=== PATIENT | female | born 1985 | race Caucasian/White ===

== ENCOUNTER → 2016-08-02 | Outpatient (CLI) | payer BC ==
[2016-08-02 15:04] LABS: EKG EKG PERFORMED
[2016-08-02 15:40] LABS: Basophils # (A) 0.1 k/uL (0-0.2); Basophils % (A) 1 %; CH 29.8; CHCM 34.5; Eosinophils # (A) 0.1 k/uL (0-0.7); Eosinophils % (A) 1 %; HCT 42.5 % (34.0-46.0); HDW 2.82; Luc % (Auto) 2; Lymphocytes # (A) 2.9 k/uL (1.0-4.8); Lymphocytes % (A) 26 %; MCH 28.6 pg (25.0-35.0); MCV 86.7 fL (80.0-100.0); Monocytes # (A) 0.4 k/uL (0-1.0); Monocytes % (A) 3 %; Neutrophils # (A) 7.7 k/uL (1.3-7.7); Neutrophils % (A) 68 %; RDW 12.8 % (11.5-15.5); WBC 11.3 k/uL (3.8-10.6); WBC (Perox) 11.35
[2016-08-02 15:42] LABS: ALT 16 U/L (9-52); AST 13 U/L (14-36); Alkaline Phosphatase 76 U/L (38-126); Anion Gap 12 mmol/L; Blood Urea Nitrogen 8 mg/dL (7-17); Calcium 9.1 mg/dL (8.4-10.2); Carbon Dioxide 18 mmol/L (22-30); Chloride 112 mmol/L (98-107); Glucose 100 mg/dL (74-99); Non-African American GFR(MDRD) >60 (>60 ml/min/1.73 sqM); Potassium 3.8 mmol/L (3.5-5.1); Sodium 142 mmol/L (137-145); Total Bilirubin 0.5 mg/dL (0.2-1.3); Total Protein 7.7 g/dL (6.3-8.2)
== END | disposition home or self-care (01) ==
LOC: LABPAT 14:56
PROVIDERS: ATTEND Surgery
DX: Z01.812 Encounter for preprocedural laboratory examination (principal)
CPT/HCPCS: 80053; 85025; 93005

== ENCOUNTER → 2016-08-02 | Outpatient (CLI) | payer BC ==
[2016-08-02 14:42] VITALS: BP 138/78; PULSE 108; RESP 20; TEMP 98.3; BMI 40.1
--- NOTE | 2016-08-02 17:44 | PN ---
DATE OF SERVICE: 08/02/2016 CHIEF COMPLAINT: Morbid obesity. INTERVAL HISTORY: Patient is doing well today. She has just finished her 6 month supervised weight loss diet. She has not had her upper endoscopy done yet. She did have her psychiatric evaluation but the results of the evaluation are pending. She has no new complaints. No change in her history or physical exam. PHYSICAL EXAM: Abdomen is soft, nontender, nondistended. IMPRESSION: A 30-year-old female with morbid obesity. PLAN: Will schedule for upper endoscopy followed by sleeve gastrectomy. The patient's preoperative complication and risk consent form were reviewed in detail. The patient will take that home and sign it after she has had an opportunity to read through the entire pamphlet. All questions were answered.
== END ==
LOC: MERGE 12-08 14:16 → BARWHC3 14:07
PROVIDERS: ATTEND Surgery
DX: E66.01 Morbid (severe) obesity due to excess calories (principal)
CPT/HCPCS: 99211

== ENCOUNTER 2016-08-17 08:23 | Day surgery (SDC) | payer BC ==
[2016-08-15 11:23] VITALS: BMI 40.1
[~2016-08-17 08:23] MED LIST: LACTATED RINGERS 1,000 ML IV SCH; LIDOCAINE 1% 20 ML VIAL (10MG/ML) FOR IV START INTRADERMA PRN
[2016-08-17 09:17] VITALS: TEMP 98.8
[2016-08-17] MEDS ORDERED: PROPOFOL 10 MG/ML 20 ML VIAL IV ONE (09:19)
--- NOTE | 2016-08-17 09:23 | P.GSHP ---
History of Present Illness H&P Date: 08/17/16 Chief Complaint: GERD, obesity Patient today for upper endoscopy. She is complaining of chronic reflux. She takes an antacid daily. Tentatively scheduled for sleeve gastrectomy on 09/14. Denies dysphagia. Past Medical History Past Medical History: Asthma, GERD/Reflux Additional Past Medical History / Comment(s): Seasonal Allergies. Cerebral Pseudo-tumor. Polycystic Ovarian Syndrome. History of Any Multi-Drug Resistant Organisms: None Reported Past Surgical History: Section, Cholecystectomy Additional Past Surgical History / Comment(s): Cholecystectomy (2011), C- Section x2 (2007 and 2009). EXC WISDOM TEETH Past Anesthesia/Blood Transfusion Reactions: Previous Problems w/ Anesthesia, Motion Sickness, Postoperative Nausea & Vomiting (PONV) Additional Past Anesthesia/Blood Transfusion Reaction / Comment(s): "FACE ITCHY. " No hx of blood transfusions Past Psychological History: Anxiety, Depression Smoking Status: Never smoker Past Alcohol Use History: Occasional Additional Past Alcohol Use History / Comment(s): one-two drinks/month Past Drug Use History: None Reported - Past Family History Mother Additional Family Medical History / Comment(s): depression, at age 42, hypoglycemia, Father Family Medical History: Hypertension Medications and Allergies Home Medications Medication Instructions Recorded Confirmed Type Ethinyl Estradiol/Drospirenone 1 tab PO HS 02/09/16 08/17/16 History [Debbi 28 Tablet] Loratadine [Claritin] 10 mg PO DAILY 02/09/16 08/17/16 History Mirtazapine [Remeron] 30 mg PO HS 02/09/16 08/17/16 History Omeprazole [PriLOSEC] 20 mg PO -BRKT 02/09/16 08/17/16 History acetaZOLAMIDE [Diamox] 500 mg PO BID 02/09/16 08/17/16 History buPROPion [Wellbutrin] 100 mg PO BID 02/09/16 08/17/16 History Albuterol Inhaler [Ventolin Hfa 1 - 2 puff INHALATION Q6HR PRN 08/15/16 History Inhaler] EPINEPHrine (Auto Inject) [Epipen] 0.3 mg IM ONCE PRN 08/15/16 08/17/16 History Pediatric Multivitamin No.30 2 each PO DAILY 08/15/16 08/17/16 History [Multivitamin Children's Gummies] Allergies Allergy/AdvReac Type Severity Reaction Status Date / Time aspirin Allergy Itching Verified 08/17/16 09:02 [From Excedrin Back and Body] butalbital [From Fioricet] Allergy Rash/Hives Verified 08/17/16 09:02 caffeine [From Fioricet] Allergy Rash/Hives Verified 08/17/16 09:02 calcium carbonate Allergy Itching Verified 08/17/16 09:02 [From Excedrin Back and Body] ibuprofen Allergy Itching Verified 08/17/16 09:02 peanut Allergy BURNING Verified 08/17/16 09:02 INSIDE BODY, Itching, COUGH Surgical - Exam Vital Signs Temp Pulse Resp BP Pulse Ox 98.8 F 105 H 16 131/85 98 08/17/16 09:09 08/17/16 09:09 08/17/16 09:09 08/17/16 09:09 08/17/16 09:09 Physical exam: General: Well-developed, well-nourished HEENT: Normocephalic, sclerae nonicteric Abdomen: Nontender, nondistended Extremities: No edema Neuro: Alert and oriented Assessment and Plan (1) GERD (gastroesophageal reflux disease) Narrative/Plan: Will proceed with upper endoscopy at this time Status: Acute
--- NOTE | 2016-08-17 09:32 | P.PCN ---
Date of Procedure: 08/17/16 Preoperative Diagnosis: Postoperative Diagnosis: Procedure(s) Performed: Preoperative Dx: GERD Postoperative Dx: Gastritis, gastric polyps Procedure: EGD with Bx Anesthesia: Sedation Endoscopist: Dr. Reed Specimens: Antrum, gastric polyp Endoscopic Procedure: The patient was on the endoscopy table in the left decubitus position. The Olympus gastroscope was inserted into the oropharynx and passed under direct visualization to the region of the third portion of the duodenum. From that point the scope was slowly withdrawn inspecting all surfaces carefully. There were no neoplastic inflammatory or polypoid lesions throughout the duodenum. The pylorus was widely patent. The stomach was carefully inspected. There was gastritis present. There were also a few small gastric polyps present throughout the stomach. One of these were biopsied. A biopsy of the antrum took place to rule out H. pylori. Retroflexion revealed a normal hiatus. The esophagus was then carefully examined. There were no neoplastic inflammatory or polypoid lesions throughout the visualized esophagus. The patient was then taken to the recovery room in stable condition per anesthesia guidelines. Recommendations: Await biopsy results. Proceed with upcoming history. Implants: Indications for Procedure: Operative Findings: Description of Procedure:
[2016-08-17 09:53] VITALS: BP 130/71; PULSE 85; RESP 18
== END 2016-08-17 10:08 | disposition home or self-care (01) ==
LOC: ORWHC2ENDO 08:23
PROVIDERS: ATTEND Surgery
DX: K21.9 Gastro-esophageal reflux disease without esophagitis (principal); K31.7 Polyp of stomach and duodenum; K29.50 Unspecified chronic gastritis without bleeding; J45.909 Unspecified asthma, uncomplicated; G93.2 Benign intracranial hypertension; F41.9 Anxiety disorder, unspecified; F32.9 Major depressive disorder, single episode, unspecified; E66.9 Obesity, unspecified; Z68.41 Body mass index [BMI] 40.0-44.9, adult; Z91.010 Allergy to peanuts; Z88.6 Allergy status to analgesic agent; Z88.8 Allergy status to other drugs, medicaments and biological substances; Z79.3 Long term (current) use of hormonal contraceptives; Z79.899 Other long term (current) drug therapy; Z90.49 Acquired absence of other specified parts of digestive tract
CPT/HCPCS: 43239; 81025; 88305; 88342; J2704

== ENCOUNTER → 2016-08-22 | Outpatient (CLI) | payer BC ==
[2016-08-22 12:18] VITALS: BMI 38.5
== END | disposition home or self-care (01) ==
LOC: BARWHC3 08:44
PROVIDERS: ATTEND Surgery
DX: E66.01 Morbid (severe) obesity due to excess calories (principal); Z71.3 Dietary counseling and surveillance
CPT/HCPCS: 97804

== ENCOUNTER 2016-09-14 08:00 | Inpatient (IN) | payer BC ==
[2016-09-06 18:17] VITALS: BMI 40.1
[~2016-09-14 08:00] MED LIST changes: +DEXAMETHASONE SOD PHOSPHATE 10 MG/ML 1 ML VIAL IV ONE; +ENOXAPARIN 40 MG/0.4 ML SYRINGE SQ ONE; -LIDOCAINE 1% 20 ML VIAL (10MG/ML) FOR IV START INTRADERMA PRN; +METHYLENE BLUE 15 MG in DEXTROSE 5% IN WATER 500 ML IRRIGATION ONE; +MIDAZOLAM 2 MG/2 ML VIAL IV PRN; +ONDANSETRON 4 MG/2 ML VIAL IVP ONE; +SCOPOLAMINE 1.5MG/72HR PATCH TRANSDERM ONE; +ceFAZolin 2 GM in SODIUM CHLORIDE 0.9% 100 ML IVPB ONE
--- NOTE | 2016-09-14 08:26 | P.GSHP ---
History of Present Illness H&P Date: 09/14/16 Chief Complaint: Morbid obesity Patient is well known to our service. She is been seen in the outpatient setting for elective bariatric surgery. The patient is interested in sleeve gastrectomy. The patient suffers from pseudotumor cerebri and is interested in weight loss improving her symptoms from that. She also has complaints of acid reflux and asthma. She is not interested in lap band or bypass. Recent upper endoscopy showed small gastric polyps. No hiatal hernia was seen. Patient denies dysphagia or DVT. Past Medical History Past Medical History: Asthma, GERD/Reflux Additional Past Medical History / Comment(s): Seasonal Allergies. Cerebral Pseudo-tumor. Polycystic Ovarian Syndrome. History of Any Multi-Drug Resistant Organisms: None Reported Past Surgical History: Section, Cholecystectomy Additional Past Surgical History / Comment(s): Cholecystectomy (2011), C- Section x2 (2007 and 2009). EXC WISDOM TEETH. EGD W/ BIOPSY 08/17/16. Past Anesthesia/Blood Transfusion Reactions: Previous Problems w/ Anesthesia, Motion Sickness, Postoperative Nausea & Vomiting (PONV) Additional Past Anesthesia/Blood Transfusion Reaction / Comment(s): "FACE ITCHY. " No hx of blood transfusions Smoking Status: Never smoker - Past Family History Mother Additional Family Medical History / Comment(s): depression, at age 42, hypoglycemia, Father Family Medical History: Hypertension Medications and Allergies Home Medications Medication Instructions Recorded Confirmed Type Ethinyl Estradiol/Drospirenone 1 tab PO HS 02/09/16 09/06/16 History [Debbi 28 Tablet] Mirtazapine [Remeron] 30 mg PO HS 02/09/16 09/06/16 History Omeprazole [PriLOSEC] 20 mg PO HS 02/09/16 09/06/16 History acetaZOLAMIDE [Diamox] 500 mg PO BID 02/09/16 09/06/16 History buPROPion [Wellbutrin] 100 mg PO 0900,1600 02/09/16 09/06/16 History Albuterol Inhaler [Ventolin Hfa 1 - 2 puff INHALATION Q6HR PRN 08/15/16 History Inhaler] EPINEPHrine (Auto Inject) [Epipen] 0.3 mg IM ONCE PRN 08/15/16 09/06/16 History Pediatric Multivitamin No.30 2 each PO DAILY 08/15/16 09/06/16 History [Multivitamin Children's Gummies] Cetirizine HCl [Zyrtec] 10 mg PO DAILY 09/06/16 09/06/16 History Fluticasone Nasal Raymond [Flonase 1 spray EA NOSTRIL DAILY 09/06/16 09/06/16 History Nasal Raymond] Montelukast [Singulair] 10 mg PO HS 09/06/16 09/06/16 History Allergies Allergy/AdvReac Type Severity Reaction Status Date / Time aspirin Allergy Itching Verified 09/06/16 17:51 [From Excedrin Back and Body] banana Allergy EAR Verified 09/06/16 17:52 ITCHING, COUGH butalbital [From Fioricet] Allergy Rash/Hives Verified 09/06/16 17:51 caffeine [From Fioricet] Allergy Rash/Hives Verified 09/06/16 17:51 calcium carbonate Allergy Itching Verified 09/06/16 17:51 [From Excedrin Back and Body] ibuprofen Allergy Itching Verified 09/06/16 17:51 naproxen [From Aleve] Allergy Itching Verified 09/06/16 17:51 peanut Allergy BURNING Verified 09/06/16 17:51 INSIDE BODY, Itching, COUGH Surgical - Exam Physical exam: General: Well-developed, well-nourished HEENT: Normocephalic, sclerae nonicteric Abdomen: Nontender, nondistended Extremities: No edema Neuro: Alert and oriented Assessment and Plan (1) Morbid obesity Narrative/Plan: Will proceed with sleeve gastrectomy. Risks of bleeding, infection, stricture, leak, abscess, fistula formation, peritonitis, poor weight loss, chronic reflux and vomiting, NC, PE, DVT, and . The patient understands and wishes to proceed. Status: Acute
[2016-09-14] MEDS ORDERED: LIDOCAINE 1% 20 ML VIAL (10MG/ML) FOR IV START INTRADERMA ONE (09:08)
[2016-09-14] MEDS ORDERED: PROPOFOL 10 MG/ML 20 ML VIAL IV ONE (10:31)
[2016-09-14] MEDS ORDERED: VECURONIUM 10 MG VIAL IV ONE (10:31)
[2016-09-14] MEDS ORDERED: LIDOCAINE 1% INJ 10MG/ML (20 ML MDV) ONE (10:31)
[2016-09-14] MEDS ORDERED: BUPIVACAIN-EPI 0.25%-1:200,000 30 ML VIAL SQ ONE ×2 (10:31)
[2016-09-14] MEDS ORDERED: GLYCOPYRROLATE 0.2 MG/ML 2 ML VIAL ONE (10:31)
[2016-09-14] MEDS ORDERED: SUCCINYLCHOLINE CHLORIDE 100 MG/5 ML SYR IV ONE (10:31)
[2016-09-14] MEDS ORDERED: MIDAZOLAM 2 MG/2 ML VIAL ONE (10:31)
[2016-09-14] MEDS ORDERED: fentaNYL (PF) 50 MCG/ML 2 ML AMP ONE (10:31)
[2016-09-14] MEDS ORDERED: NEOSTIGMINE 1 MG/ML 10 ML VIAL ONE (10:31)
[2016-09-14] MEDS ORDERED: LACTATED RINGERS 1,000 ML IV ONE (12:01)
[2016-09-14] MEDS ORDERED: NALOXONE 0.4 MG/ML 1 ML VIAL IV PRN (12:04)
[2016-09-14] MEDS ORDERED: diphenhydrAMINE 50 MG/ML 1 ML VIAL IVP PRN (12:04)
--- NOTE | 2016-09-14 12:09 | P.OP ---
Date of Procedure: 09/14/16 Preoperative Diagnosis: Postoperative Diagnosis: Procedure(s) Performed: PREOPERATIVE DIAGNOSIS: Morbid obesity, asthma, GERD POSTOPERATIVE DIAGNOSIS: Same PROCEDURE: Laparoscopic sleeve gastrectomy SURGEON: Derek EBL: Minimal ANESTHESIA: General COMPLICATIONS: None OPERATIVE PROCEDURE: Patient was placed in the operating table in the supine position. She was placed under general anesthesia at that time. The abdomen was prepped and draped in sterile fashion after the patient was placed in lithotomy. A 5 mm optical trocar was used to enter the abdominal cavity in the left upper quadrant. Insufflation took place to 15 millimeters mercury. An additional right subxiphoid 5 mm trocar was then placed under direct visualization and then removed. 2 additional 5 mm trochars were placed in the right upper quadrant and left upper quadrant under direct visualization and a 15 mm trocar in the umbilical location. The liver was retracted using a medium Jean liver retractor through the right subxiphoid trocar site. The hiatus was inspected. The patient had no visible hiatal hernia At that point I moved to the mid aspect of the greater curvature the stomach. The short gastric vasculature was divided using a LigaSure device proximally. I then switched and divided the short gastrics distally to a 3-4 cm from the pylorus. The dissection took place up to the left diaphragmatic crura at that point. The posterior short gastrics were likewise divided using the LigaSure device. Once the stomach was fully mobilized the blunt tipped 40-Faroese bougie dilator was advanced into the stomach and advanced all the way to the prepyloric location. A black echelon 60 stapler was utilized and fired tangentially across the antrum taking care to avoid narrowing at the incisura angularis. Subsequent firings of the stapler took place. A total of 3 green echelon 60 staplers with seam guard took place proximally staying on the outer edge of our dilator. Once we reached the most proximal portion of the stomach a single firing of the gold echelon 60 stapler without seen guard took place. The oral gastric tube was reinserted. The stomach was insufflated with approximately 100 mL of methylene blue. No evidence of leak or obstruction was seen. The distal aspect of the sleeve was then reapproximated to the gastrosplenic and gastrocolic ligament using a short running 2-0 strata fix suture. This was done to prevent kinking or twisting of the sleeve. The stomach remnant was removed from the 15 mm trocar site without difficulty. The fascia at the 15 mm site was closed using interrupted 0 Vicryl sutures. The insufflation was evacuated. The skin at all 5 incisions were closed using 4-0 Monocryl sutures. Steri-Strips and sterile dressings were then applied. DISPOSITION: Stable to recovery room Implants: Indications for Procedure: Operative Findings: Description of Procedure:
[2016-09-14] MEDS ORDERED: diphenhydrAMINE 50 MG/ML 1 ML VIAL IVP ONE (12:22)
[2016-09-14] MEDS: HYDROmorphone 1 MG/ML 1 ML SYRINGE IVP PRN ×7 (12:25→23:49)
[2016-09-14] MEDS: 0.9% NACL WITH KCL 20 MEQ/L 1,000 ML IV SCH ×2 (13:46→20:19)
[2016-09-14] MEDS: ONDANSETRON 4 MG/2 ML VIAL IVP PRN ×2 (15:00→23:45)
[2016-09-14] MEDS: HYOSCYAMINE ORAL DROPS 1.875 MG/15 ML BOTTLE PO PRN (15:01)
[2016-09-14] MEDS: ALBUTEROL NEBULIZED 2.5 MG/3 ML INHALATION SCH ×2 (15:25→19:29)
--- NOTE | 2016-09-14 16:34 | CONS ---
REASON FOR CONSULTATION: Advice regarding asthma and other multiple medical issues, requested by Dr. Reed. HISTORY OF PRESENT ILLNESS: This 31-year-old woman with a past medical history of asthma, GERD, history of section, history of anxiety, depression, being followed by Dr. Grimm in the outpatient setting, underwent laparoscopic sleeve gastrectomy by Dr. Reed. The patient tolerated the procedure well. The patient is being closely monitored. There is no history of any fever, rigor or chills. No history of headache, loss of consciousness, seizures, chest pain or palpitations at this time. PAST MEDICAL HISTORY: 1. History of asthma. 2. GERD. 3. History of cholecystectomy. 4. History of anxiety, depression. HOME MEDICATIONS: 1. Wellbutrin 100 mg p.o. daily. 2. Multivitamins 1 p.o. daily. 3. Prilosec 20 mg at bedtime. 4. Singulair 10 mg at bedtime. 5. Remeron 30 mg at bedtime. 6. Flonase 1 spray daily. 7. Debbi 1 p.o. at bedtime. 8. Epipen 0.3 IM p.r.n. 9. Zyrtec 10 mg daily p.r.n. 10. Ventolin HFA 1 to 2 puffs q.6 p.r.n. ALLERGIES: 1. PEANUTS. 2. ASPIRIN. 3. BANANA. 4. BUTALBITAL. 5. CAFFEINE. 6. CALCIUM CARBONATE. 7. IBUPROFEN. 8. NAPROSYN. FAMILY HISTORY: History of hypertension. History of depression. History of hypoglycemia. SOCIAL HISTORY: No history of smoking. No history of alcohol intake. REVIEW OF SYSTEMS: ENT: No diminished hearing. No diminished vision. CARDIOVASCULAR SYSTEM: No angina, palpitations. RESPIRATORY SYSTEM: No cough, hemoptysis. GI: As mentioned earlier. : No dysuria, retention. NERVOUS SYSTEM: No numbness, weakness. ALLERGY/IMMUNOLOGY: No asthma, fever. MUSCULOSKELETAL: As mentioned earlier. HEMATOLOGY/ONCOLOGY: No history of anemia. ENDOCRINE: No history of diabetes or hypothyroidism. CONSTITUTIONAL: As mentioned earlier. DERMATOLOGIC: Negative. RHEUMATOLOGIC: Negative. PSYCHIATRY: As mentioned earlier. PHYSICAL EXAMINATION: Patient is alert and oriented x3. Pulse is 99, blood pressure 136/81, respirations 18, temperature normal, pulse ox 98% on 3 L. HEENT: Conjunctivae normal. Oral mucosa moist. NECK: No jugular venous congestion. No carotid bruit. No lymph node enlargement. CARDIAC: S1, S2 muffled. No S3. No S4. RESPIRATORY: Breath sounds diminished at the bases. No rhonchi. No crackles. ABDOMEN: Soft. Obese. Status post surgery. No mass palpable. LEGS: No edema. No swelling. NERVOUS SYSTEM: Higher functions as mentioned earlier. Moves all 4 limbs. No focal motor or sensory deficit. LYMPHATICS: No lymph node palpable in neck, axillae or groin. SKIN: No ulcer, rash or bleeding. LABS: Potassium 4. The previous labs are CBC, WBC 11.3. The chemistry shows CO2 is 18. LDL is 102. ASSESSMENT: 1. Status post laparoscopic sleeve gastrectomy for obesity. 2. History of gastroesophageal reflux disease. 3. History of asthma. 4. Seasonal allergies. 5. History of cerebral pseudotumor. 6. History of polycystic ovary syndrome. 7. History of cholecystectomy. 8. History of anxiety, depression not otherwise specified. 9. Obesity with a body mass index of 40.2. 10. FULL CODE. RECOMMENDATIONS AND DISCUSSION: In this 31-year-old woman who presented after surgery, at this time I recommend to continue current medications, continue with symptomatic treatment. Otherwise, initiate the p.o. medications when the patient is p.o. Other than that, DVT prophylaxis. Incentive spirometry. We will follow with you closely. The patient may be asked to follow with Dr. Grimm closely after discharge. Thank you, Dr. Reed, for letting us participate in the care of this patient. SHAN
[2016-09-14] MEDS ORDERED: ALBUTEROL INHALER 60 PUFF/8 GM INHALER INHALATION SCH (20:00)
[2016-09-14] MEDS ORDERED: MIRTAZAPINE 30 MG PO SCH (21:00)
[2016-09-15] MEDS: HYOSCYAMINE ORAL DROPS 1.875 MG/15 ML BOTTLE PO PRN ×2 (02:34→09:44)
[2016-09-15] MEDS: 0.9% NACL WITH KCL 20 MEQ/L 1,000 ML IV SCH ×3 (02:57→17:39)
[2016-09-15] MEDS: HYDROmorphone 1 MG/ML 1 ML SYRINGE IVP PRN ×5 (02:59→21:06)
[2016-09-15] MEDS ORDERED: ONDANSETRON 4 MG/2 ML VIAL IVP STA (03:12)
[2016-09-15] MEDS: ONDANSETRON 4 MG/2 ML VIAL IVP PRN ×3 (06:09→21:03)
[2016-09-15 07:03] LABS: Basophils % (A) 0 %; CHCM 35.3; Eosinophils # (A) 0.1 k/uL (0-0.7); Eosinophils % (A) 1 %; HCT 34.2 % (34.0-46.0); HDW 2.98; HGB 12.3 gm/dL (11.4-16.0); Luc # (Auto) 0.12; Luc % (Auto) 1; Lymphocytes # (A) 2.3 k/uL (1.0-4.8); Lymphocytes % (A) 19 %; MCH 30.5 pg (25.0-35.0); MCHC 35.8 g/dL (31.0-37.0); MCV 85.2 fL (80.0-100.0); Mean Platelet Volume 6.2; Monocytes # (A) 0.4 k/uL (0-1.0); Monocytes % (A) 4 %; Neutrophils # (A) 9.1 k/uL (1.3-7.7); Neutrophils % (A) 75 %; RBC 4.02 m/uL (3.80-5.40); RDW 13.3 % (11.5-15.5); WBC 12.1 k/uL (3.8-10.6); WBC (Perox) 11.82
[2016-09-15 07:23] LABS: Anion Gap 9 mmol/L; Blood Urea Nitrogen 6 mg/dL (7-17); Calcium 8.4 mg/dL (8.4-10.2); Carbon Dioxide 20 mmol/L (22-30); Chloride 110 mmol/L (98-107); Non-African American GFR(MDRD) >60 (>60 ml/min/1.73 sqM); Phosphorous 2.7 mg/dL (2.5-4.5); Potassium 4.2 mmol/L (3.5-5.1); Sodium 139 mmol/L (137-145)
[2016-09-15] MEDS: ALBUTEROL NEBULIZED 2.5 MG/3 ML INHALATION SCH ×4 (07:44→19:51)
[2016-09-15] MEDS: PANTOPRAZOLE 40 MG/10 ML VIAL IV SCH (10:20)
[2016-09-15] MEDS: FLUTICASONE 50MCG/SPRAY NASAL 16GM EA NOSTRIL SCH (10:29)
[2016-09-15] MEDS: ENOXAPARIN 40 MG/0.4 ML SYRINGE SQ SCH ×2 (10:31→21:17)
[2016-09-15 14:00] LABS: Appearance,Urine Cloudy (Clear); Bacteria,Urine Rare /hpf; Bilirubin,Urine Negative (Negative); Glucose,Urine (UA) Negative (Negative); Ketones,Urine 3+ (Negative); Leukocyte Esterase,Urine Negative (Negative); Mucus,Urine Rare /hpf; Nitrite,Urine Negative (Negative); PH, Urine 5.5 (5.0-8.0); Particle Count 2774; Protein,Urine Negative (Negative); RBC,Urine 1 /hpf (0-5); Specific Gravity,Urine 1.017 (1.001-1.035); Squamous Epithelial Cell,Urine 5 /hpf (0-4); UA Billing (MACRO vs. MICRO) MICRO; Urobilinogen,Urine <2.0 mg/dL (<2.0); WBC,Urine 2 /hpf (0-5)
--- NOTE | 2016-09-15 16:19 | P.PN ---
Subjective Principal diagnosis: Morbid obesity Patient complaining of some nausea today. She is also having some pressure related pain in the neck and back. The patient is unable to take Toradol because of her aspirin ALLERGY and is relying on Dilaudid. Her pain is improving although slowly. Her upper GI showed no evidence of leak or obstruction. Her vital signs have been stable. Her white blood cell count is minimally elevated. Objective - Vital Signs Vital signs: Vital Signs Temp 98.2 F 09/15/16 14:30 Pulse 62 09/15/16 15:33 Resp 16 09/15/16 14:30 BP 125/74 09/15/16 14:30 Pulse Ox 96 09/15/16 14:30 Intake & Output 09/14/16 09/15/16 09/15/16 18:59 06:59 18:59 Intake Total 2103 1800 Output Total 360 400 Balance 1743 1800 -400 Weight 90.265 kg 90.265 kg Intake: IV 2103 1800 0.9% NaCl with KCl 20 Meq 1800 /l 1,000 ml @ 150 mls/hr IV .Q6H40M [facility] Rx#: [id number] Output: Urine 350 400 Estimated Blood Loss 10 Other: Voiding Method Toilet Toilet # Voids 1 1 - Exam Abdomen: Soft, nondistended, minimal incisional tenderness - Labs CBC & Chem 7: 09/15/16 06:49 09/15/16 06:49 Labs: Abnormal Lab Results - Last 24 Hours (Table) 09/15/16 09/15/16 09/15/16 Range/Units 06:49 06:49 13:20 WBC 12.1 H (3.8-10.6) k/uL Neutrophils # 9.1 H (1.3-7.7) k/uL Chloride 110 H (98-107) mmol/L Carbon Dioxide 20 L (22-30) mmol/L BUN 6 L (7-17) mg/dL Creatinine 0.50 L (0.52-1.04) mg/dL Urine Appearance Cloudy H (Clear) Urine Ketones 3+ H (Negative) Urine Blood Moderate H (Negative) Ur Squamous Epith Cells 5 H (0-4) /hpf Urine Bacteria Rare H (None) /hpf Urine Mucus Rare H (None) /hpf Assessment and Plan (1) Morbid obesity Narrative/Plan: Continue bariatric clear liquids. We'll add Farzaneh for pain. Increase activity levels. Reevaluate tomorrow. Status: Acute
[2016-09-15] MEDS: ACETAMINOPHEN IV (For NPO) 1,000 MG in EMPTY BAG 1 BAG IVPB SCH (16:46)
[2016-09-15] MEDS: SIMETHICONE 40 MG/0.6 ML DROPS 2,000 MG/30 ML BOTTLE PO PRN (19:41)
[2016-09-15] MEDS: MIRTAZAPINE 15 MG TAB PO SCH (21:05)
[2016-09-16] MEDS: ACETAMINOPHEN IV (For NPO) 1,000 MG in EMPTY BAG 1 BAG IVPB SCH ×3 (00:38→12:10)
[2016-09-16] MEDS: 0.9% NACL WITH KCL 20 MEQ/L 1,000 ML IV SCH ×2 (02:56→12:10)
[2016-09-16] MEDS: ONDANSETRON 4 MG/2 ML VIAL IVP PRN ×3 (04:23→15:45)
[2016-09-16] MEDS: HYDROmorphone 1 MG/ML 1 ML SYRINGE IVP PRN ×3 (04:25→15:46)
[2016-09-16] MEDS: ALBUTEROL NEBULIZED 2.5 MG/3 ML INHALATION SCH ×4 (07:11→20:44)
[2016-09-16 07:47] LABS: Basophils % (A) 0 %; CH 29.6; CHCM 34.5; Eosinophils % (A) 0 %; Luc # (Auto) 0.09; Luc % (Auto) 1; Lymphocytes # (A) 2.4 k/uL (1.0-4.8); Lymphocytes % (A) 28 %; MCH 29.5 pg (25.0-35.0); MCHC 34.2 g/dL (31.0-37.0); MCV 86.1 fL (80.0-100.0); Monocytes # (A) 0.4 k/uL (0-1.0); Monocytes % (A) 4 %; Neutrophils # (A) 5.8 k/uL (1.3-7.7); Neutrophils % (A) 67 %; RBC 4.06 m/uL (3.80-5.40); WBC 8.7 k/uL (3.8-10.6); WBC (Perox) 9.24
[2016-09-16 07:59] LABS: Anion Gap 9 mmol/L; Blood Urea Nitrogen 5 mg/dL (7-17); Calcium 8.6 mg/dL (8.4-10.2); Carbon Dioxide 25 mmol/L (22-30); Chloride 104 mmol/L (98-107); Glucose 83 mg/dL (74-99); Non-African American GFR(MDRD) >60 (>60 ml/min/1.73 sqM); Potassium 4.2 mmol/L (3.5-5.1); Sodium 138 mmol/L (137-145)
[2016-09-16] MEDS: FLUTICASONE 50MCG/SPRAY NASAL 16GM EA NOSTRIL SCH (09:28)
[2016-09-16] MEDS: ENOXAPARIN 40 MG/0.4 ML SYRINGE SQ SCH ×2 (09:28→20:53)
[2016-09-16] MEDS: PANTOPRAZOLE 40 MG/10 ML VIAL IV SCH (09:28)
[2016-09-16] MEDS: SIMETHICONE 40 MG/0.6 ML DROPS 2,000 MG/30 ML BOTTLE PO PRN ×2 (09:29→15:59)
--- NOTE | 2016-09-16 10:46 | FL ---
EXAMINATION TYPE: FL UGI DATE OF EXAM ORDERED: 09/16/2016 10:39 AM HISTORY: Post op bariatric surgery. COMPARISON: None. FINDINGS: There is prompt egress of contrast from the esophagus into the stomach remnant. There is n o evidence of extravasation or free air. The ligament of Treitz is in the normal location. IMPRESSION: STATUS POST GASTRIC SLEEVE PROCEDURE.
[2016-09-16] MEDS: HYOSCYAMINE ORAL DROPS 1.875 MG/15 ML BOTTLE PO PRN (12:11)
--- NOTE | 2016-09-16 13:40 | PN ---
DATE OF SERVICE: 09/15/2016 This 31-year-old woman who was admitted with gastric sleeve surgery is improving significantly. No chest pain or palpitation. No fever. On exam, alert and oriented x3. Pulse 56, blood pressure 125/74, respirations 16 , temperature 98.2, pulse ox 96% on room air. HEENT: Conjunctivae normal. NECK: No jugular venous distention. CARDIOVASCULAR: S1 and S2 muffled. RESPIRATORY: Breath sounds diminished at the bases. No rhonchi. No crackles. ABDOMEN: Soft, status post surgery. NERVOUS SYSTEM: No focal deficits. LABS: WBC 12.1. ASSESSMENT: 1. Status post laparoscopic sleeve gastrectomy. 2. Obesity. 3. History of gastroesophageal reflux disease. 4. History of asthma. 5. History of seasonal allergies. 6. History of cerebral pseudotumor. 7. Multiple medical issues. RECOMMENDATIONS AND DISCUSSION: Recommend to continue current medications. Continue incentive spirometry. Closely monitor. Further recommendations to follow. DVT prophylaxis. MTDD
[2016-09-16 14:31] VITALS: RESP 16
--- NOTE | 2016-09-16 16:23 | P.PN ---
Subjective Principal diagnosis: Morbid obesity Patient feels better today. Her nausea and pain are both improved. Her white blood cell count was normal. She is afebrile. She is tolerating approximately 10-15 ounces of liquids thus far today. She is ambulating hallways without difficulties. She is voiding better at this time. She had a bowel movement as well. Objective - Vital Signs Vital signs: Vital Signs Temp 98.0 F 09/16/16 14:30 Pulse 72 09/16/16 14:30 Resp 16 09/16/16 14:30 BP 109/64 09/16/16 14:30 Pulse Ox 98 09/16/16 14:30 Intake & Output 09/15/16 09/16/16 09/16/16 18:59 06:59 18:59 Intake Total 800 Output Total 625 300 Balance -625 500 Weight 90.265 kg Intake: IV 800 0.9% NaCl with KCl 20 Meq 800 /l 1,000 ml @ 100 mls/hr IV .Q10H [facility] Rx#: [id number] Output: Urine 625 300 Other: Voiding Method Toilet Toilet Toilet # Voids 1 2 3 - Exam Abdomen: Soft, nondistended, mild tenderness, incisions clean and dry and - Labs CBC & Chem 7: 09/16/16 07:10 09/16/16 07:10 Labs: Abnormal Lab Results - Last 24 Hours (Table) 09/16/16 Range/Units 07:10 BUN 5 L (7-17) mg/dL Assessment and Plan (1) Morbid obesity Narrative/Plan: Continue encouraging oral intake. Continue ambulation. Possible discharge tomorrow. Will switch to oral pain meds at this point. Status: Acute
[2016-09-16] MEDS ORDERED: ACETAMINOPHEN TAB 500 MG TAB PO PRN (16:24)
[2016-09-16] MEDS: HYDROcodone/APAP 5-325MG 1 EACH TAB PO PRN (19:52)
[2016-09-16] MEDS: MIRTAZAPINE 15 MG TAB PO SCH (20:53)
[2016-09-17] MEDS: HYDROcodone/APAP 5-325MG 1 EACH TAB PO PRN ×5 (03:18→20:30)
[2016-09-17] MEDS: ALBUTEROL NEBULIZED 2.5 MG/3 ML INHALATION SCH ×4 (06:55→19:05)
[2016-09-17] MEDS: ENOXAPARIN 40 MG/0.4 ML SYRINGE SQ SCH ×2 (07:25→20:30)
[2016-09-17] MEDS: FLUTICASONE 50MCG/SPRAY NASAL 16GM EA NOSTRIL SCH (07:26)
[2016-09-17] MEDS: PANTOPRAZOLE 40 MG/10 ML VIAL IV SCH (07:26)
[2016-09-17] MEDS: 0.9% NACL WITH KCL 20 MEQ/L 1,000 ML IV SCH ×2 (07:45→18:54)
--- NOTE | 2016-09-17 11:43 | P.PN ---
Subjective Principal diagnosis: Morbid obesity Patient still struggling a little bit with her oral intake. She's had about 9 ounces of liquids thus far today. Her pain and nausea or for the most part resolved. She still having some dysphagia and spasms with ingestion. Objective - Vital Signs Vital signs: Vital Signs Temp 97.7 F 09/17/16 08:10 Pulse 63 09/17/16 11:00 Resp 16 09/17/16 08:10 BP 133/69 09/17/16 08:10 Pulse Ox 99 09/17/16 08:10 Intake & Output 09/16/16 09/17/16 09/17/16 18:59 06:59 18:59 Intake Total 1100 300 Balance 1100 300 Intake: Intake, IV Titration 1100 Amount 0.9% NaCl with KCl 20 Meq 1100 /l 1,000 ml @ 100 mls/hr IV .Q10H [facility] Rx#: [id number] Oral 300 Other: Voiding Method Toilet Toilet Toilet # Voids 3 - Exam Abdomen: Soft, nondistended, incisions clean and dry, minimal tenderness - Labs CBC & Chem 7: 09/16/16 07:10 09/16/16 07:10 Assessment and Plan (1) Morbid obesity Narrative/Plan: Continue liquid diet. Possible discharge later today or tomorrow if oral intake improves. Status: Acute
[2016-09-17] MEDS: MIRTAZAPINE 15 MG TAB PO SCH (20:30)
[2016-09-18] MEDS: HYDROcodone/APAP 5-325MG 1 EACH TAB PO PRN ×3 (02:50→12:03)
[2016-09-18] MEDS: 0.9% NACL WITH KCL 20 MEQ/L 1,000 ML IV SCH (04:28)
[2016-09-18] MEDS: PANTOPRAZOLE 40 MG/10 ML VIAL IV SCH (07:05)
[2016-09-18] MEDS: ENOXAPARIN 40 MG/0.4 ML SYRINGE SQ SCH (07:05)
[2016-09-18] MEDS: FLUTICASONE 50MCG/SPRAY NASAL 16GM EA NOSTRIL SCH (07:05)
[2016-09-18] MEDS: ALBUTEROL NEBULIZED 2.5 MG/3 ML INHALATION SCH ×2 (07:30→11:48)
--- NOTE | 2016-09-18 07:40 | PN ---
DATE OF SERVICE: 09/16/2016 This 31-year-old woman was admitted after laparoscopic sleeve gastrectomy. She is being closely monitored. No chest pain. No palpitation. No fever. On exam, alert and oriented x3. Pulse 95, blood pressure 121/74, respiration 16 , temperature 98 degrees, pulse ox 100% on room air. HEENT: Conjunctivae normal. NECK: No jugular venous distention. CARDIOVASCULAR: S1, S2 muffled. No S3. No S4. RESPIRATORY: Breath sounds diminished at the bases. No rhonchi. No crackles. ABDOMEN: Soft. Non-tender. LEGS: No edema. No swelling. NERVOUS SYSTEM: No focal deficit. LABS: WBC 8.6, hemoglobin 12. Sodium 138. ASSESSMENT: 1. Status post laparoscopic sleeve gastrectomy. 2. Obesity. 3. History of gastroesophageal reflux disease. 4. History of asthma. 5. Seasonal allergies. 6. History of cerebral pseudotumor. 7. Multiple medical issues. RECOMMENDATIONS AND DISCUSSION: I recommend to continue current medications, continue symptomatic treatment. Otherwise at this time I would recommend incentive spirometry, DVT prophylaxis. Guarded prognosis. Further recommendations to follow. MTDD
[2016-09-18 07:43] VITALS: BP 131/90; TEMP 97.9
--- NOTE | 2016-09-18 11:24 | P.DS ---
Providers Date of admission: 09/14/16 08:17 Expected date of discharge: 09/18/16 Attending physician: Torres Reed Consults: 09/14/16 12:04 Consult Physician Routine Consulting Provider: Marquita Walls Consult Reason/Comments: Medical management Do you want consulting provider notified?: Yes Primary care physician: Henry Grimm - Discharge Diagnosis(es) (1) Morbid obesity Patient hospitalized for elective sleeve gastrectomy. Postoperatively the patient had slightly more than expected nausea and dysphagia with some abdominal cramps. Those symptoms have gradually improved and she is now tolerating approximately 40 ounces of liquids per day. Her pain is well- controlled. Her incisions are healing up properly. Her vital signs are stable and her white blood cell count is normal. She'll be discharged home with plans for outpatient follow-up in 1 week. Current Visit: Yes Status: Acute Plan - Discharge Summary New Discharge Prescriptions: New Hydrocodone/Acetaminophen [[place] 5-325] 1 - 2 each PO Q4HR PRN #30 tab PRN Reason: pain No Action Omeprazole [PriLOSEC] 20 mg PO HS Mirtazapine [Remeron] 30 mg PO HS Ethinyl Estradiol/Drospirenone [Debbi 28 Tablet] 1 tab PO HS buPROPion [Wellbutrin] 100 mg PO DAILY@0900,1600 Pediatric Multivitamin No.30 [Multivitamin Children's Gummies] 2 tab PO DAILY EPINEPHrine (Auto Inject) [Epipen] 0.3 mg IM ONCE PRN PRN Reason: Anaphylaxis Albuterol Inhaler [Ventolin Hfa Inhaler] 1 - 2 puff INHALATION RT-Q6H PRN PRN Reason: ASTHMA SX Cetirizine HCl [Zyrtec] 10 mg PO DAILY Fluticasone Nasal [place] [Flonase Nasal [place]] 1 spray EA NOSTRIL DAILY Montelukast [Singulair] 10 mg PO HS Discharge Medication List Ethinyl Estradiol/Drospirenone [Debbi 28 Tablet] 1 tab PO HS 02/09/16 [History] Mirtazapine [Remeron] 30 mg PO HS 02/09/16 [History] Omeprazole [PriLOSEC] 20 mg PO HS 02/09/16 [History] buPROPion [Wellbutrin] 100 mg PO DAILY@0900,1600 02/09/16 [History] Albuterol Inhaler [Ventolin Hfa Inhaler] 1 - 2 puff INHALATION RT-Q6H PRN [History] EPINEPHrine (Auto Inject) [Epipen] 0.3 mg IM ONCE PRN 08/15/16 [History] Pediatric Multivitamin No.30 [Multivitamin Children's Gummies] 2 tab PO DAILY [History] Cetirizine HCl [Zyrtec] 10 mg PO DAILY 09/06/16 [History] Fluticasone Nasal [place] [Flonase Nasal [place]] 1 spray EA NOSTRIL DAILY 09/06/16 [History] Montelukast [Singulair] 10 mg PO HS 09/06/16 [History] Hydrocodone/Acetaminophen [[place] 5-325] 1 - 2 each PO Q4HR PRN #30 tab 09/18/16 [Rx] Follow up Appointment(s)/Referral(s): Torres Reed MD [Medical Doctor] - 1 Week
[2016-09-18 11:51] VITALS: PULSE 68
--- NOTE | 2016-09-19 11:36 | PN ---
DATE OF SERVICE: 09/17/2016 This 31-year-old woman who was admitted after laparoscopic sleeve gastrectomy is improving significantly. No chest pain or palpitation. No fever. On exam, alert and oriented x3. Pulse 84, blood pressure 133/69, respirations 16 , temperature 97.7, pulse ox 99% on room air. HEENT: Conjunctivae normal. NECK: No jugular venous distention. CARDIOVASCULAR: S1 and S2 muffled. RESPIRATORY: Breath sounds diminished at the bases. No rhonchi. No crackles. ABDOMEN: Soft. Status post surgery. LEGS: No edema, no swelling. NERVOUS SYSTEM: No focal deficits. LABS: CBC within normal limits. ASSESSMENT: 1. Status post laparoscopic sleeve gastrectomy. 2. Obesity. 3. History of gastroesophageal reflux disease. 4. History of asthma. 5. History of seasonal allergies. 6. History of cerebral pseudotumor. 7. Multiple medical issues. RECOMMENDATIONS AND DISCUSSION: Recommend to continue current medications. Continue symptomatic treatment. Otherwise, incentive spirometry. DVT prophylaxis. Further recommendations to follow. MTDD
== END 2016-09-18 12:00 | disposition home or self-care (01) | DRG 621 ==
LOC: 2ORWHC 08:17 → 5MS5E 13:08 → 3SUR 09-18 10:03
PROVIDERS: ADMIT Surgery; ATTEND Surgery
PROC: 0DB64Z3 Excision of Stomach, Percutaneous Endoscopic Approach, Vertical (ICD-10-PCS; principal; 2016-09-14 10:30)
DX: E66.01 Morbid (severe) obesity due to excess calories (principal); R13.10 Dysphagia, unspecified; E28.2 Polycystic ovarian syndrome; G93.2 Benign intracranial hypertension; J45.909 Unspecified asthma, uncomplicated; K21.9 Gastro-esophageal reflux disease without esophagitis; Z68.41 Body mass index [BMI] 40.0-44.9, adult; Z81.8 Family history of other mental and behavioral disorders; Z82.49 Family history of ischemic heart disease and other diseases of the circulatory system; Z88.6 Allergy status to analgesic agent; Z79.899 Other long term (current) drug therapy
CPT/HCPCS: 74240; 80048; 80051; 81001; 81025; 82310; 82565; 83735; 84100; 84132; 84520; 85025; 88307; 94640; 94760; 94762

== ENCOUNTER → 2016-10-04 | Outpatient (CLI) | payer BC ==
[2016-10-04 15:02] VITALS: BP 121/78; PULSE 97; TEMP 98.4; BMI 35.5
--- NOTE | 2016-10-04 15:37 | P.BASOAP ---
Subjective Principal diagnosis: Morbid obesity patient gradually feeling better. Denies nausea or vomiting. Feels full at times. Tolerating her soft diet. Mild reflux but no heartburn. Had some dysphagia with a hard boiled egg. Her energy seems to be waxing and waning at times. Protein intake approximately 50 g per day liquid intake approximate 40- 50 ounces per day. Feels full at times. No seen for hungry issues. Decent weight loss. Objective - Vital Signs Vital signs: Vital Signs Temp 98.4 F 10/04/16 14:39 Pulse 97 10/04/16 14:39 Resp BP 121/78 10/04/16 14:39 Pulse Ox Intake & Output 10/03/16 10/04/16 10/04/16 18:59 06:59 18:59 Weight 79.832 kg - Exam Abdomen: Soft, nontender, nondistended, incisions with resolving rash Assessment/Plan (1) Morbid obesity Narrative/Plan: Continue bariatric diet and gradually advance. Follow-up 2 weeks for 1 month labs and reevaluation at that time. Gradually increase protein and liquid intake. Plan: Date: 10/04/16 Initial Weight: 86.682 kg Initial BMI: 38.5 Current Weight: 79.832 kg Current BMI: 35.5 Type of Surgery: Total Volume in Band: Previous Volume: Volume Removed: Volume Added: Band Size:
== END | disposition home or self-care (01) ==
LOC: BARWHC3 13:36
PROVIDERS: ATTEND Surgery
DX: E66.01 Morbid (severe) obesity due to excess calories (principal); Z68.35 Body mass index [BMI] 35.0-35.9, adult
CPT/HCPCS: 97803; 99211

== ENCOUNTER → 2016-10-11 | Outpatient (CLI) | payer BC ==
[2016-10-11 12:12] LABS: Basophils % (A) 1 %; CH 30.5; CHCM 35.6; Eosinophils # (A) 0.1 k/uL (0-0.7); Eosinophils % (A) 2 %; HCT 40.6 % (34.0-46.0); HDW 2.91; HGB 13.8 gm/dL (11.4-16.0); Luc # (Auto) 0.11; Luc % (Auto) 2; Lymphocytes # (A) 2.1 k/uL (1.0-4.8); Lymphocytes % (A) 29 %; MCH 29.3 pg (25.0-35.0); MCV 86.2 fL (80.0-100.0); Mean Platelet Volume 6.8; Monocytes # (A) 0.3 k/uL (0-1.0); Monocytes % (A) 4 %; Neutrophils # (A) 4.6 k/uL (1.3-7.7); Neutrophils % (A) 64 %; RBC 4.72 m/uL (3.80-5.40); RDW 13.5 % (11.5-15.5); WBC 7.2 k/uL (3.8-10.6); WBC (Perox) 7.29
[2016-10-11 12:22] LABS: ALT 55 U/L (9-52); AST 27 U/L (14-36); Alkaline Phosphatase 86 U/L (38-126); Anion Gap 11 mmol/L; Blood Urea Nitrogen 8 mg/dL (7-17); Calcium 9.5 mg/dL (8.4-10.2); Carbon Dioxide 25 mmol/L (22-30); Chloride 107 mmol/L (98-107); Cholesterol 149 mg/dL (<200); Glucose 85 mg/dL (74-99); HDL Cholesterol 52 mg/dL (40-60); Non-African American GFR(MDRD) >60 (>60 ml/min/1.73 sqM); Potassium 4.2 mmol/L (3.5-5.1); Sodium 143 mmol/L (137-145); Total Bilirubin 0.4 mg/dL (0.2-1.3)
[2016-10-11 12:23] LABS: Triglycerides 143 mg/dL (<150)
== END | disposition home or self-care (01) ==
LOC: LABWHC1 11:38
PROVIDERS: ATTEND Surgery
DX: Z00.00 Encounter for general adult medical examination without abnormal findings (principal); K90.89 Other intestinal malabsorption; E55.9 Vitamin D deficiency, unspecified; Z13.1 Encounter for screening for diabetes mellitus; Z79.899 Other long term (current) drug therapy; Z13.220 Encounter for screening for lipoid disorders
CPT/HCPCS: 36415; 80053; 80061; 82306; 84443; 85025

== ENCOUNTER → 2016-10-18 | Outpatient (CLI) | payer BC ==
[2016-10-18 16:09] VITALS: BP 129/76; PULSE 92; TEMP 98.4
--- NOTE | 2016-10-18 16:27 | P.BASOAP ---
Subjective Principal diagnosis: Morbid obesity Patient seen 1 month post sleeve gastrectomy. She is doing well. No pain. Mild hungry at times. She had 2 episodes of vomiting with her multivitamins but none other. 4 pounds weight loss since her last visit 2 weeks ago. She still is fatigued although that seems to be improving. Adequate protein and liquid intake. Her labs were drawn last week look great. She does feel full after meals. Objective - Vital Signs Vital signs: Vital Signs Temp 98.4 F 10/18/16 16:06 Pulse 92 10/18/16 16:06 Resp BP 129/76 10/18/16 16:06 Pulse Ox - Exam Abdomen: Soft, nontender, nondistended, incision clean dry Assessment/Plan (1) Morbid obesity Narrative/Plan: Continue bariatric diet. Increase exercise level. Follow-up visit one month. Plan: Date: 10/18/16 Initial Weight: 86.682 kg Initial BMI: Current Weight: Current BMI: Type of Surgery: Total Volume in Band: Previous Volume: Volume Removed: Volume Added: Band Size:
[2016-10-18 16:35] VITALS: BMI 34.7
== END | disposition home or self-care (01) ==
LOC: BARWHC3 15:14
PROVIDERS: ATTEND Surgery
DX: E66.01 Morbid (severe) obesity due to excess calories (principal)
CPT/HCPCS: 97803; 99211

== ENCOUNTER → 2016-12-15 | Outpatient (CLI) | payer BC ==
[2016-12-15 12:25] LABS: CH 30.1; CHCM 34.4; HCT 38.8 % (34.0-46.0); HDW 2.81; HGB 13.5 gm/dL (11.4-16.0); MCH 30.6 pg (25.0-35.0); MCHC 34.7 g/dL (31.0-37.0); Mean Platelet Volume 6.3; RBC 4.41 m/uL (3.80-5.40); RDW 12.2 % (11.5-15.5); WBC 8.8 k/uL (3.8-10.6)
[2016-12-15 12:39] LABS: ALT 37 U/L (9-52); AST 16 U/L (14-36); Alkaline Phosphatase 73 U/L (38-126); Anion Gap 10 mmol/L; Blood Urea Nitrogen 7 mg/dL (7-17); Calcium 9.7 mg/dL (8.4-10.2); Carbon Dioxide 25 mmol/L (22-30); Chloride 106 mmol/L (98-107); Glucose 95 mg/dL (74-99); Iron 74 ug/dL (37-170); Non-African American GFR(MDRD) >60 (>60 ml/min/1.73 sqM); Potassium 4.1 mmol/L (3.5-5.1); Sodium 141 mmol/L (137-145); Total Bilirubin 0.4 mg/dL (0.2-1.3); Total Protein 7.2 g/dL (6.3-8.2)
[2016-12-15 13:27] LABS: Vitamin B12 691 pg/mL (239-931)
[2016-12-20 18:10] LABS: Selenium 121 mcg/L (63-160)
== END | disposition home or self-care (01) ==
LOC: LABWHC1 11:45
PROVIDERS: ATTEND Surgery
DX: E66.01 Morbid (severe) obesity due to excess calories (principal); D50.8 Other iron deficiency anemias; N19 Unspecified kidney failure; E44.0 Moderate protein-calorie malnutrition
CPT/HCPCS: 36415; 80053; 82607; 82746; 83540; 84255; 84425; 84439; 84443; 84590; 84630; 85027

== ENCOUNTER → 2017-01-24 | Outpatient (CLI) | payer BC ==
[2017-01-24 13:47] VITALS: BP 127/85; PULSE 107; RESP 20; TEMP 98.2; BMI 29.7
--- NOTE | 2017-01-24 14:09 | P.BASOAP ---
Subjective Progress Note Date: 01/24/17 Principal diagnosis: Morbid obesity Patient returns for follow-up. Last seen on 12/06. Her heartburn is improved. She says she only experiences heartburn if she is eating spicy foods or chocolate. Hair loss is less. 2 episodes of regurgitation since last visit. No abdominal pain. Recent labs from December 15 were reviewed and appear normal. She did have a recent TSH level evaluated and her value was 0.02. She has an ultrasound ordered and additional labs. She does not have an endocrinology evaluation scheduled thus far. Objective - Vital Signs Vital signs: Vital Signs Temp 98.2 F 01/24/17 13:31 Pulse 107 H 01/24/17 13:31 Resp 20 01/24/17 13:31 BP 127/85 01/24/17 13:31 Pulse Ox Intake & Output 01/23/17 01/24/17 01/24/17 18:59 06:59 18:59 Weight 66.633 kg - Exam Abdomen: Soft, nontender, nondistended Assessment/Plan (1) Morbid obesity Narrative/Plan: Patient gradually improving. Encouraged her to discuss with her primary care physician an endocrinology evaluation. Continue antiacids for now. Follow-up visit 4-6 weeks. Plan: Date: 01/24/17 Initial Weight: 86.682 kg Initial BMI: 38.5 Current Weight: 66.633 kg Current BMI: 29.7 Type of Surgery: Total Volume in Band: Previous Volume: Volume Removed: Volume Added: Band Size:
== END | disposition home or self-care (01) ==
LOC: BARWHC3 13:21
PROVIDERS: ATTEND Surgery
DX: E66.01 Morbid (severe) obesity due to excess calories (principal); Z68.29 Body mass index [BMI] 29.0-29.9, adult
CPT/HCPCS: 99211

== ENCOUNTER → 2017-01-27 | Outpatient (CLI) | payer BC ==
--- NOTE | 2017-01-28 16:03 | US ---
EXAMINATION TYPE: US thyroid st tissue head/neck DATE OF EXAM: 01/27/2017 COMPARISON: NONE CLINICAL HISTORY: L65.9 Hair Loss. GLAND SIZE: Right Lobe: 5.4 x 2.1 x 1.3 cm Overall Parenchyma: homogenous Left Lobe: 5.1 x 1.8 x 1.3 cm Overall Parenchyma: homogeneous Isthmus Thickness: 0.2 cm NODULES RIGHT: # of nodules measured on right: 1 largest of multiple small nodules 1. 0.3 x 0.3 x 0.2cm hypoechoic solid nodule at the mid lateral pole with well-defined margins. Thi s nodule is wider than tall and shows no intranodular vascularity. LEFT: # of nodules measured on left: 1 largest of multiple small nodules 1. 0.3 x 0.3 x 0.2 cm hypoechoic cystic nodule at the mid pole with well-defined margins. This nodu le is wider than tall and shows no intranodular vascularity. ISTHMUS: # of nodules measured in the isthmus: 0 Bilateral neck scanned: inferior to left thyroid is oval, hypoechoic mass = 0.6 x 0.5 x 0.5cm (possib le parathyroid nodule). IMPRESSION: 1. Bilateral subcentimeter pulmonary nodules in a mildly enlarged thyroid gland that are too small fo r percutaneous biopsy. Surveillance is recommended. 2. Inferior to the left thyroid gland there is a hypoechoic 0.6 x 0.5 x 0.5 cm lesion. This could rel ate to a nonenlarged adjacent lymph node or ectopic parathyroid adenoma. If clinical laboratory value s and clinical presentation are fitting further evaluation with nuclear medicine parathyroid scan cou ld be performed.
== END ==
LOC: RADUSWWP 16:16
PROVIDERS: ATTEND Family Medicine
DX: E04.2 Nontoxic multinodular goiter (principal); L65.9 Nonscarring hair loss, unspecified
CPT/HCPCS: 36415; 76536; 82306; 83970; 84439; 84481

== ENCOUNTER → 2017-11-07 | Outpatient (CLI) | payer BC ==
[2017-11-07 14:10] VITALS: BP 125/78; PULSE 80; TEMP 97.8
--- NOTE | 2017-11-07 23:12 | P.PN ---
Progress Note - Text Progress Note Date: 11/07/17 Patient left prior to my arrival today.
== END | disposition home or self-care (01) ==
LOC: BARWHC3 13:49
PROVIDERS: ATTEND Surgery
DX: Z71.3 Dietary counseling and surveillance (principal); Z53.8 Procedure and treatment not carried out for other reasons
CPT/HCPCS: 97803; 99211

== ENCOUNTER → 2017-11-30 | Outpatient (CLI) | payer BC ==
[2017-11-30 11:45] LABS: HCT 42.5 % (34.0-46.0); HGB 14.1 gm/dL (11.4-16.0); MCH 30.2 pg (25.0-35.0); MCHC 33.3 g/dL (31.0-37.0); MCV 90.7 fL (80.0-100.0); Mean Platelet Volume 5.9; Platelet Count 308 k/uL (150-450); RBC 4.68 m/uL (3.80-5.40); RDW 12.6 % (11.5-15.5); WBC 7.4 k/uL (3.8-10.6)
[2017-11-30 12:09] LABS: ALT 26 U/L (9-52); AST 17 U/L (14-36); Albumin 4.3 g/dL (3.5-5.0); Alkaline Phosphatase 52 U/L (38-126); Anion Gap 6 mmol/L; Blood Urea Nitrogen 16 mg/dL (7-17); Calcium 9.3 mg/dL (8.4-10.2); Carbon Dioxide 28 mmol/L (22-30); Chloride 106 mmol/L (98-107); Glucose 78 mg/dL (74-99); Sodium 140 mmol/L (137-145); Total Bilirubin 0.4 mg/dL (0.2-1.3); Total Protein 7.3 g/dL (6.3-8.2)
== END | disposition home or self-care (01) ==
LOC: LABWHC1 11:22
PROVIDERS: ATTEND Surgery
DX: D50.8 Other iron deficiency anemias (principal); E66.01 Morbid (severe) obesity due to excess calories
CPT/HCPCS: 36415; 80053; 82746; 83540; 84425; 85027

== ENCOUNTER → 2017-12-27 | Outpatient (CLI) | payer BC ==
--- NOTE | 2017-12-27 15:59 | US ---
EXAMINATION TYPE: US thyroid st tissue head/neck DATE OF EXAM: 12/27/2017 COMPARISON: Thyroid ultrasound January 27, 2017 CLINICAL HISTORY: E04.1 Thyroid nodule, parathyroid GLAND SIZE: Right Lobe: 5.2 x 2.4 x 1.8 cm Overall Parenchyma: homogenous Left Lobe: 5.1 x 1.7 x 1.3 cm Overall Parenchyma: homogeneous Isthmus Thickness: 0.3 cm NODULES RIGHT: # of nodules measured on right: 1 largest of multiple small nodules 1. 0.5 X 0.4 x 0.4 cm hypoechoic mixed nodule at the mid lateral pole with well-defined margins. T his nodule is wide as is tall and shows no intranodular vascularity. Prior size: 0.3 x 0.3 x 0.2 cm LEFT: # of nodules measured on left: 1 largest of multiple 1. 0.5 X 0.4 x 0.2 cm hypoechoic cystic nodule at the mid pole with well-defined margins. This nod ule is wider than tall and shows no intranodular vascularity. Prior size: 0.3 x 0.3 x 0.2 cm ISTHMUS: # of nodules measured in the isthmus: 0 Bilateral neck scanned: inferior to left thyroid an oval hypoechoic nodule is seen in parathyroid reg ion with size =0.7 x 0.6 x 0.4cm. Persistent homogeneous thyroid upper limits of normal in size with small nodules redemonstrated bilat erally. Redemonstration of stable 8 mm nodule near lower pole level left thyroid cannot exclude parat hyroid adenoma. No significant interval change from prior. IMPRESSION: Overall stable findings, no new suspicious greater than 1 cm nodules. Can't exclude parathyroid adeno ma. No significant interval change.
== END ==
LOC: RADUSWWP 14:43
PROVIDERS: ATTEND Family Medicine
DX: E04.1 Nontoxic single thyroid nodule (principal)
CPT/HCPCS: 76536

== ENCOUNTER → 2018-05-02 | Outpatient (CLI) | payer BC ==
--- NOTE | 2018-05-03 09:40 | NM ---
EXAMINATION TYPE: NM thyroid image w uptake DATE OF EXAM: 05/03/2018 COMPARISON: 12/27/2017 ultrasound HISTORY: Abnormal ultrasound TECHNIQUE: Thyroid iodine uptake is calculated and images performed after the oral administration of 312 uCi 1-123 Capsule. FINDINGS: There is normal distribution of activity throughout the gland. The 4 hour iodine uptake is calculated at 18.4% (normal range 8-14%). The 24-hour iodine uptake is calculated at 30.8% (normal r rip 15-35%). IMPRESSION: 1. No hot or cold defects. Small nodule seen by ultrasound may be too small to detect by nuclear medi cine exam. 2. Findings suggestive of hyperthyroidism.
== END | disposition home or self-care (01) ==
LOC: RADNMMAIN 08:31
PROVIDERS: ATTEND Family Medicine
DX: E04.1 Nontoxic single thyroid nodule (principal); R79.89 Other specified abnormal findings of blood chemistry
CPT/HCPCS: 78014; A9516

== ENCOUNTER → 2018-05-03 | Outpatient (CLI) | payer BC ==
--- NOTE | 2018-05-11 20:05 | HM ---
HOLTER MONITOR REPORT PROCEDURE PERFORMED: 24 hour Holter monitor DATE OF SERVICE: May 03, 2018. REFERRING PHYSICIAN: Dr. Grimm. INDICATIONS: Palpitations. CLINICAL INFORMATION: The patient was monitored for 72 hours. The baseline rhythm appeared to be a sinus mechanism with a minimum heart rate of 45 beats per minute. Maximum heart rate 115 beats per minute, average heart rate of 74 beats per minute. Ventricular ectopy given is not seen. Supraventricular ectopic events were presented in less than 1% of the total of this count and presented mainly as isolated PACs with couplets. No evidence of sinus pause exceeds 2.5 seconds. No evidence of any tachy or bradyarrhythmia. The patient reported no symptoms. CONCLUSION: 1. This is a 72 hour Holter monitor. 2. Sinus rhythm as a baseline mechanism. 3. No evidence of any ventricular ectopy events. 4. Rare supraventricular ectopic events. 5. No evidence of any advanced AV block. 6. No evidence of any sinus pause exceeds 2.5 seconds seen. 7. The patient reported no symptoms. MMODL / IJN: [id number] /
== END | disposition home or self-care (01) ==
LOC: RADECHMAIN 08:34
PROVIDERS: ATTEND Family Medicine
DX: R00.0 Tachycardia, unspecified (principal)
CPT/HCPCS: 93225; 93226

== ENCOUNTER → 2018-05-16 | Outpatient (CLI) | payer BC ==
[2018-05-16 17:44] LABS: T4, Free (Free Thyroxine) 1.2 ng/dL (0.80-1.80)
== END ==
LOC: LABWHC1 09:25
PROVIDERS: ATTEND Internal Medicine Endocrinology, Diabetes & Metabolism
DX: E04.2 Nontoxic multinodular goiter (principal)
CPT/HCPCS: 36415; 84439; 84443

== ENCOUNTER → 2018-07-13 | Outpatient (CLI) | payer BC | LOC: LABWHC1 08:58 | PROVIDERS: ATTEND Internal Medicine Endocrinology, Diabetes & Metabolism | DX: E04.2 Nontoxic multinodular goiter (principal) | CPT/HCPCS: 36415; 84439; 84443; 84480 ==

== ENCOUNTER → 2018-07-23 | Outpatient (CLI) | payer BC ==
[2018-07-23 10:11] LABS: Basophils % (A) 0 %; Eosinophils % (A) 1 %; HCT 40.8 % (34.0-46.0); HGB 13.1 gm/dL (11.4-16.0); Lymphocytes % (A) 30 %; MCHC 32.1 g/dL (31.0-37.0); MCV 90.2 fL (80.0-100.0); Mean Platelet Volume 5.9; Monocytes # (A) 0.3 k/uL (0-1.0); Monocytes % (A) 4 %; Neutrophils # (A) 4.3 k/uL (1.3-7.7); Neutrophils % (A) 64 %; Platelet Count 278 k/uL (150-450); RBC 4.52 m/uL (3.80-5.40); RDW 12.8 % (11.5-15.5); WBC 6.8 k/uL (3.8-10.6)
[2018-07-23 16:22] LABS: Albumin 4.1 g/dL (3.80-4.90); Albumin/Globulin Ratio 1.86 (1.60-3.17); Anion Gap 6.6 mmol/L (4.00-12.00); Calcium 8.6 mg/dL (8.7-10.3); Carbon Dioxide 26.4 mmol/L (21.6-31.8); Globulin 2.2 g/dL (1.6-3.3); LDL Cholesterol,Calculated 91.8 mg/dL (0.0-131.0); Potassium 4.1 mmol/L (3.5-5.5); Total Bilirubin 0.4 mg/dL (0.2-1.2); Total Protein 6.3 g/dL (6.2-8.2); VLDL Calculation 15.2 mg/dL (5.00-40.00)
== END ==
LOC: LABWHC1 09:14
PROVIDERS: ATTEND Nurse Practitioner
DX: Z00.00 Encounter for general adult medical examination without abnormal findings (principal); Z13.1 Encounter for screening for diabetes mellitus; Z13.0 Encounter for screening for diseases of the blood and blood-forming organs and certain disorders involving the immune mechanism; Z13.220 Encounter for screening for lipoid disorders
CPT/HCPCS: 36415; 80053; 80061; 85025

== ENCOUNTER → 2018-09-18 | Outpatient (CLI) | payer BC ==
[2018-09-18 13:44] VITALS: BP 119/76; PULSE 52; TEMP 97.2; BMI 32.1
--- NOTE | 2018-09-18 15:20 | P.BASOAP ---
Subjective Progress Note Date: 09/18/18 Principal diagnosis: Morbid obesity Patient returns today for reevaluation. Last seen January 2017. Had an appointment last year but the plan was canceled because of an emergency that I had. He has been eating slightly more often. He is hungry at night at times. No significant exercise lately. Denies vomiting. Recent CBC and CMP reviewed and appears normal. Due for bariatric labs however. Patient still taking antiacid therapy. No GERD symptoms while taking her medications. She stopped taking her bariatric multivitamin and is now taking chewable children's vitamins. Objective - Vital Signs Vital signs: Vital Signs Temp 97.2 F L 09/18/18 13:25 Pulse 52 L 09/18/18 13:25 Resp BP 119/76 09/18/18 13:25 Pulse Ox Intake & Output 09/17/18 09/18/18 09/18/18 18:59 06:59 18:59 Weight 94.347 kg - Exam Abdomen: Soft, nontender, nondistended Assessment/Plan (1) Morbid obesity Narrative/Plan: Patient overall doing fairly well. 6 pound increase since last visit. Continue daily antiacids for now. We'll check bariatric labs at this time. Further decisions regarding appropriate vitamin supplementation following that review. For now we'll plan one year follow-up. Plan: Date: 09/18/18 Initial Weight: 86.682 kg Initial BMI: 29.5 Current Weight: 94.347 kg Current BMI: 32.1 Type of Surgery: Total Volume in Band: Previous Volume: Volume Removed: Volume Added: Band Size:
== END | disposition home or self-care (01) ==
LOC: BARWHC3 12:40
PROVIDERS: ATTEND Surgery
DX: E66.01 Morbid (severe) obesity due to excess calories (principal); Z68.32 Body mass index [BMI] 32.0-32.9, adult
CPT/HCPCS: 99211

== ENCOUNTER → 2018-09-18 | Outpatient (CLI) | payer BC ==
[2018-09-18 20:12] LABS: Vitamin D 25 Hydroxy 22.7 ng/mL (30.0-100.0)
[2018-09-18 20:14] LABS: Folate, Serum 14.1 ng/mL
== END | disposition home or self-care (01) ==
LOC: LABWHC1 13:45
PROVIDERS: ATTEND Surgery
DX: E66.01 Morbid (severe) obesity due to excess calories (principal); K90.9 Intestinal malabsorption, unspecified; E55.9 Vitamin D deficiency, unspecified
CPT/HCPCS: 36415; 82306; 82607; 82746; 83540; 84425

== ENCOUNTER → 2018-12-18 | Outpatient (CLI) | payer BC ==
--- NOTE | 2018-12-18 14:14 | US ---
EXAMINATION TYPE: US thyroid st tissue head/neck DATE OF EXAM: 12/18/2018 COMPARISON: NONE CLINICAL HISTORY: E05.90 Subclinical hyperthyroidism. on meds for a few months for hyperthyroidism, f /u exam GLAND SIZE: Right Lobe: 5.4 x 1.7 x 2.3 cm Overall Parenchyma: homogenous Left Lobe: 5.2 x 1.8 x 1.8 cm Overall Parenchyma: homogeneous Isthmus Thickness: 0.6 cm NODULES RIGHT: # of nodules measured on right: 1 1. 0.3 X 0.2 x 0.2 cm cystic nodule at the mid pole with well-defined margins. This nodule is wide r than tall and shows no intranodular vascularity. Prior size: 0.5 x 0.4 x 0.4 cm LEFT: # of nodules measured on left: 1 1. 0.4 X 0.3 x 0.4 cm mixed nodule at the mid pole with well-defined margins. This nodule is wider than tall and shows no intranodular vascularity. Prior size: 0.5 x 0.4 x 0.2 cm ISTHMUS: # of nodules measured in the isthmus: 0 Bilateral neck scanned, no evidence of lymphadenopathy. *unable to recreate the previous cystic structure noted inferior to left thyroid IMPRESSION: Similar subcentimeter thyroid nodules. No interval growth nor new thyroid nodule. Mild th yromegaly.
[2018-12-18 14:18] LABS: T4, Free (Free Thyroxine) 0.93 ng/dL (0.78-2.19)
== END | disposition home or self-care (01) ==
LOC: RADUSWWP 12:44
PROVIDERS: ATTEND Internal Medicine Endocrinology, Diabetes & Metabolism
DX: E01.0 Iodine-deficiency related diffuse (endemic) goiter (principal); E05.90 Thyrotoxicosis, unspecified without thyrotoxic crisis or storm
CPT/HCPCS: 36415; 76536; 84439; 84443; 84480

== ENCOUNTER → 2019-03-21 | Outpatient (CLI) | payer BC ==
[2019-03-21 10:26] LABS: Basophils % (A) 1 %; Eosinophils # (A) 0.1 k/uL (0-0.7); Eosinophils % (A) 1 %; HGB 14.2 gm/dL (11.4-16.0); Lymphocytes # (A) 2.3 k/uL (1.0-4.8); Lymphocytes % (A) 37 %; MCH 31.2 pg (25.0-35.0); MCHC 35.4 g/dL (31.0-37.0); MCV 88.3 fL (80.0-100.0); Mean Platelet Volume 6.4; Monocytes # (A) 0.2 k/uL (0-1.0); Monocytes % (A) 4 %; Neutrophils # (A) 3.5 k/uL (1.3-7.7); Neutrophils % (A) 57 %; Platelet Count 323 k/uL (150-450); RBC 4.53 m/uL (3.80-5.40); RDW 11.6 % (11.5-15.5); WBC 6.1 k/uL (3.8-10.6)
[2019-03-21 17:02] LABS: African American GFR (CKD) 130.1 (60.0-200.0); Albumin 4.5 g/dL (3.80-4.90); Albumin/Globulin Ratio 2.14 (1.60-3.17); Anion Gap 7.6 mmol/L (4.00-12.00); BUN/Creat Ratio 15.71 Ratio (12.00-20.00); Calcium 9.3 mg/dL (8.7-10.3); Carbon Dioxide 27.4 mmol/L (21.6-31.8); Globulin 2.1 g/dL (1.6-3.3); Non-African American GFR(CKD) 112.3 (60.0-200.0); Potassium 4.3 mmol/L (3.5-5.5); Total Bilirubin 0.4 mg/dL (0.3-1.2); Total Protein 6.6 g/dL (6.2-8.2)
[2019-03-21 17:08] LABS: T4, Free (Free Thyroxine) 1.2 ng/dL (0.80-1.80)
== END | disposition home or self-care (01) ==
LOC: LABWHC1 09:07
PROVIDERS: ATTEND Internal Medicine Endocrinology, Diabetes & Metabolism
DX: E05.80 Other thyrotoxicosis without thyrotoxic crisis or storm (principal); R53.83 Other fatigue; Z71.89 Other specified counseling; Z79.899 Other long term (current) drug therapy
CPT/HCPCS: 36415; 80053; 82306; 84439; 84443; 84480; 85025

== ENCOUNTER → 2019-08-09 | Outpatient (CLI) | payer BC | END | disposition home or self-care (01) | LOC: LABWHC1 14:42 | PROVIDERS: ATTEND Internal Medicine Endocrinology, Diabetes & Metabolism | DX: E05.90 Thyrotoxicosis, unspecified without thyrotoxic crisis or storm (principal); E04.2 Nontoxic multinodular goiter | CPT/HCPCS: 36415; 84439; 84443; 84480 ==

== ENCOUNTER → 2019-11-29 | Outpatient (CLI) | payer BC ==
[2019-11-29 12:11] LABS: Basophils % (A) 1 %; Eosinophils # (A) 0.1 k/uL (0-0.7); Eosinophils % (A) 1 %; HCT 42.8 % (34.0-46.0); Lymphocytes # (A) 2.4 k/uL (1.0-4.8); Lymphocytes % (A) 37 %; MCH 28.9 pg (25.0-35.0); MCHC 32.8 g/dL (31.0-37.0); MCV 88.1 fL (80.0-100.0); Mean Platelet Volume 6.2; Monocytes # (A) 0.3 k/uL (0-1.0); Monocytes % (A) 4 %; Neutrophils # (A) 3.7 k/uL (1.3-7.7); Neutrophils % (A) 56 %; Platelet Count 298 k/uL (150-450); RBC 4.85 m/uL (3.80-5.40); RDW 11.7 % (11.5-15.5); WBC 6.5 k/uL (3.8-10.6)
[2019-11-29 18:35] LABS: African American GFR (CKD) 129.2 (60.0-200.0); Albumin 4.6 g/dL (3.80-4.90); Albumin/Globulin Ratio 1.92 (1.60-3.17); Anion Gap 9.5 mmol/L (4.00-12.00); BUN/Creat Ratio 14.29 Ratio (12.00-20.00); Calcium 9.1 mg/dL (8.7-10.3); Carbon Dioxide 26.5 mmol/L (21.6-31.8); Chol/HDL Ratio 2.78; Globulin 2.4 g/dL (1.6-3.3); Non-African American GFR(CKD) 111.5 (60.0-200.0); Total Bilirubin 0.4 mg/dL (0.3-1.2)
== END | disposition home or self-care (01) ==
LOC: LABWHC1 09:36
PROVIDERS: ATTEND Internal Medicine Endocrinology, Diabetes & Metabolism
DX: Z00.00 Encounter for general adult medical examination without abnormal findings (principal); E05.90 Thyrotoxicosis, unspecified without thyrotoxic crisis or storm; Z13.220 Encounter for screening for lipoid disorders; Z13.0 Encounter for screening for diseases of the blood and blood-forming organs and certain disorders involving the immune mechanism; Z13.1 Encounter for screening for diabetes mellitus; Z90.3 Acquired absence of stomach [part of]; E04.2 Nontoxic multinodular goiter
CPT/HCPCS: 36415; 80053; 80061; 82306; 84439; 84443; 85025

== ENCOUNTER → 2019-12-10 | Outpatient (CLI) | payer BC ==
--- NOTE | 2019-12-10 10:28 | US ---
EXAMINATION TYPE: US thyroid st tissue head/neck DATE OF EXAM: 12/10/2019 COMPARISON: US 12/18/2018 CLINICAL HISTORY: E04.2 Nontoxic multinodular goiter. Takes thyroid medication GLAND SIZE: Right Lobe: 5.3 x 2.4 x 1.7 cm Overall Parenchyma: homogenous Left Lobe: 5.3 x 2.1 x 1.5 cm Overall Parenchyma: homogeneous Isthmus Thickness: 0.4 cm NODULES RIGHT: # of nodules measured on right: largest of multiple small nodules 1. 0.4 X 0.3 x 0.2 cm hypoechoic cystic nodule at the lower pole with well-defined margins. This n odule is wider than tall and shows no intranodular vascularity. Prior mid pole simple cyst was 0.3 x 0.2 x 0.2cm. LEFT: # of nodules measured on left: 1 1. 0.5 X 0.4 x 0.3 cm hypoechoic mixed nodule at the mid pole with well-defined margins. This nodu le is wider than tall and shows no intranodular vascularity. Prior size: 0.4 x 0.4 x 0.3 cm ISTHMUS: # of nodules measured in the isthmus: 0 Bilateral neck scanned: inferior to left thyroid is hypoechoic oval nodule and may be lymph node vs. parathyroid nodule = 0.7 x 0.3 x 0.4cm. IMPRESSION: 1. Mild thyromegaly. Bilateral subcentimeter nodules the prior exam. 2. 7 x 3 mm nodule inferior left thyroid could represent a small lymph node or possibly a tiny parath yroid nodule finding is too small to characterize and can be followed on subsequent exams.
== END | disposition home or self-care (01) ==
LOC: RADUSWWP 09:35
PROVIDERS: ATTEND Internal Medicine Endocrinology, Diabetes & Metabolism
DX: E01.0 Iodine-deficiency related diffuse (endemic) goiter (principal)
CPT/HCPCS: 76536

== ENCOUNTER → 2019-12-30 | Outpatient (CLI) | payer BC ==
--- NOTE | 2019-12-30 12:14 | MM ---
Reason for exam: screening (asymptomatic). Baseline mammogram. History: Family history of breast cancer in maternal grandmother at age 72. Took hormonal contraceptives for 5 years. Physical Findings: Nurse Summary: 0.5cm nodule in the left breast at 5 o'clock (nurse natasha). MG 3D Screening Mammo W/Cad Bilateral CC and MLO view(s) were taken. The breast tissue is heterogeneously dense. This may lower the sensitivity of mammography. Palpable marker left breast 5 o'clock. 9 x 8mm circumscribed mass 6 o'clock subareolar right breast. These results were verbally communicated with the patient and result sheet given to the patient on 12/30/19. ASSESSMENT: Incomplete: need additional imaging evaluation, BI-RAD 0 RECOMMENDATION: Ultrasound of both breasts. (right periareolar, left palpable)
--- NOTE | 2019-12-30 12:16 | USB ---
Reason for exam: additional evaluation requested from abnormal screening. History: Family history of breast cancer in maternal grandmother at age 72. Took hormonal contraceptives for 5 years. Physical Findings: Breast exam preformed at baseline screening. US Breast Workup Limited DOLORES Technologist: Elena Buenrostro Right limited breast ultrasound including focal area of concern, retroareolar and axilla demonstrates a 1.0 x 0.9 x 0.5cm oval, hypoechoic lesion at the posterior nipple, circumscribed with subtle posterior through transmission fibroadenoma is suspected. 6 month follow up mammogram. Left limited breast ultrasound including focal area of concern, retroareolar and axilla demonstrates no abnormality at the nurse palpated site. Left scanned 3-6 o'clock. These results were verbally communicated with the patient and result sheet given to the patient on 12/30/19. ASSESSMENT: Probably benign, BI-RAD 3 RECOMMENDATION: Follow-up diagnostic mammogram of the right breast in 6 months.
== END | disposition home or self-care (01) ==
LOC: RADMAMWWP 10:16
PROVIDERS: ATTEND Family Medicine
DX: R92.8 Other abnormal and inconclusive findings on diagnostic imaging of breast (principal); Z12.31 Encounter for screening mammogram for malignant neoplasm of breast; N63.20 Unspecified lump in the left breast, unspecified quadrant
CPT/HCPCS: 77063; 77067

== ENCOUNTER → 2020-04-23 | Outpatient (CLI) | payer BC ==
[2020-04-23 14:49] LABS: T4, Free (Free Thyroxine) 1.1 ng/dL (0.80-1.80)
== END | disposition home or self-care (01) ==
LOC: LABWHC1 09:09
PROVIDERS: ATTEND Internal Medicine Endocrinology, Diabetes & Metabolism
DX: E04.2 Nontoxic multinodular goiter (principal)
CPT/HCPCS: 36415; 84439; 84443

== ENCOUNTER → 2020-08-07 | Outpatient (CLI) | payer BC ==
[2020-08-07 15:07] LABS: Basophils # (A) 0.05 X 10*3/uL (0.00-0.10); Basophils % (A) 0.8 %; Eosinophils # (A) 0.08 X 10*3/uL (0.04-0.35); Eosinophils % (A) 1.3 %; HCT 41.8 % (37.2-46.3); HGB 13.8 g/dL (12.0-15.0); Lymphocytes # (A) 2.28 X 10*3/uL (0.90-5.00); Lymphocytes % (A) 37.6 %; MCH 29.8 pg (27.0-32.0); MCV 90.3 fL (80.0-97.0); Mean Platelet Volume 8.9 fL (9.5-12.2); Monocytes # (A) 0.34 X 10*3/uL (0.20-1.00); Monocytes % (A) 5.6 %; Neutrophils # (A) 3.31 X 10*3/uL (1.80-7.70); Neutrophils % (A) 54.5 %; Platelet Count 340 X 10*3/uL (140-440); RBC 4.63 X 10*6/uL (4.10-5.20); WBC 6.07 X 10*3/uL (4.50-10.00)
[2020-08-07 21:17] LABS: African American GFR (CKD) 109.9 (60.0-200.0); Albumin 4.8 g/dL (3.80-4.90); Anion Gap 8.8 mmol/L (4.00-12.00); BUN/Creat Ratio 12.5 Ratio (12.00-20.00); Calcium 9.6 mg/dL (8.7-10.3); Carbon Dioxide 23.2 mmol/L (21.6-31.8); Chol/HDL Ratio 3.48; Globulin 2.4 g/dL (1.6-3.3); LDL Cholesterol,Calculated 141.8 mg/dL (0.0-131.0); Non-African American GFR(CKD) 94.8 (60.0-200.0); Potassium 4.1 mmol/L (3.5-5.5); Total Bilirubin 0.4 mg/dL (0.3-1.2); Total Protein 7.2 g/dL (6.2-8.2); VLDL Calculation 17.2 mg/dL (5.00-40.00)
== END | disposition home or self-care (01) ==
LOC: LABWHC1 09:02
PROVIDERS: ATTEND Internal Medicine Endocrinology, Diabetes & Metabolism
DX: Z13.0 Encounter for screening for diseases of the blood and blood-forming organs and certain disorders involving the immune mechanism (principal); Z13.21 Encounter for screening for nutritional disorder; Z13.220 Encounter for screening for lipoid disorders; E05.90 Thyrotoxicosis, unspecified without thyrotoxic crisis or storm; Z79.899 Other long term (current) drug therapy
CPT/HCPCS: 36415; 80053; 80061; 82306; 84439; 84443; 84480; 85025

== ENCOUNTER → 2020-11-03 | Outpatient (CLI) | payer BC ==
--- NOTE | 2020-11-04 07:26 | US ---
EXAMINATION TYPE: US thyroid st tissue head/neck DATE OF EXAM: 11/03/2020 COMPARISON: US 12/10/2019 CLINICAL HISTORY: E04.2 Nontoxic multinodular goiter. Nontoxic multinodular goiter per order. Patient takes thyroid medication. GLAND SIZE: Right Lobe: 5.1 x 2.6 x 1.9 cm Overall Parenchyma: homogenous Left Lobe: 5.6 x 2.2 x 1.8 cm Overall Parenchyma: homogeneous Isthmus Thickness: 0.29 cm NODULES RIGHT: # of nodules measured on right: 2 1. 0.4 X 0.4 x 0.2 cm, lower lateral, anechoic, nodule, which is wider than tall, with smooth boby ns, with echogenic focus laterally. Prior size: May not correlate 2. 0.5 X 0.4 x 0.3 cm, lower, hypoechoic nodule, which is wider than tall, with ill-defined margins , without echogenic foci. Prior size: May not correlate. LEFT: # of nodules measured on left: 1 1. 0.5 X 0.5 x 0.4 cm, mid, hypoechoic nodule, which is wider than tall, with smooth margins, witho ut echogenic foci. Prior size: 0.5 x 0.4 x 0.2 cm ISTHMUS: # of nodules measured in the isthmus: 0 Bilateral neck scanned, no evidence of lymphadenopathy. IMPRESSION: 1. Thyroidomegaly. 2. Nonspecific subcentimeter thyroid nodularity. 2017 ACR TI-RADS LEVEL: *Highest TI-RADS level nodule reported
== END | disposition home or self-care (01) ==
LOC: RADUSWWP 16:48
PROVIDERS: ATTEND Internal Medicine Endocrinology, Diabetes & Metabolism
DX: E04.2 Nontoxic multinodular goiter (principal)
CPT/HCPCS: 76536

== ENCOUNTER → 2020-11-11 | Outpatient (CLI) | payer BC | END | disposition home or self-care (01) | LOC: LABWHC1 10:12 | PROVIDERS: ATTEND Internal Medicine Endocrinology, Diabetes & Metabolism | DX: E05.90 Thyrotoxicosis, unspecified without thyrotoxic crisis or storm (principal) | CPT/HCPCS: 36415; 84439; 84443; 84480 ==

== ENCOUNTER → 2021-01-15 | Outpatient (CLI) | payer BC ==
--- NOTE | 2021-01-15 11:22 | MM ---
Reason for exam: follow-up at short interval from prior study. Last mammogram was performed 1 year and 1 month ago. History: Family history of breast cancer in maternal grandmother at age 72. Took hormonal contraceptives for 5 years. Physical Findings: Nurse did not find any significant physical abnormalities on exam. MG 3D Diag Mammo W/Cad DOLORES Bilateral CC and MLO view(s) were taken. Prior study comparison: December 30, 2019, bilateral MG 3d screening mammo w/cad. The breast tissue is heterogeneously dense. This may lower the sensitivity of mammography. Finding: There is a typically benign, stable 9 mm equal density (isodense), indistinct oval mass located 3 cm from the nipple in the 3 o'clock inner quadrant of the right breast. No significant changes in finding since December 30, 2019. These results were verbally communicated with the patient and result sheet given to the patient on 01/15/21. ASSESSMENT: Benign, BI-RAD 2 RECOMMENDATION: Routine screening mammogram of both breasts in 1 year.
== END | disposition home or self-care (01) ==
LOC: RADMAMWWP 09:37
PROVIDERS: ATTEND Family Medicine
DX: N63.15 Unspecified lump in the right breast, overlapping quadrants (principal); Z80.3 Family history of malignant neoplasm of breast
CPT/HCPCS: 77062; 77066

== ENCOUNTER → 2021-02-23 | Outpatient (CLI) | payer BC ==
--- NOTE | 2021-02-23 14:31 | P.BASOAP ---
Subjective Progress Note Date: 02/23/21 Principal diagnosis: Morbid obesity Patient returns today for evaluation. She was last seen September 2018. Patient has sleeve gastrectomy 2016. She had annual lab work in July. Labs were reviewed and look good. Since her last visit she has lost 12 pounds. Patient states between her last visit her weight had gone up to 170. She says she has been more focused lately. Would like to see the dietitian to discuss other options. Usually does 1 protein powder shake in the morning. GERD symptoms controlled with once daily omeprazole. Careful about eating close to bedtime. Objective - Exam Abdomen: Soft, nontender, nondistended Assessment/Plan (1) Morbid obesity Narrative/Plan: Patient doing relatively well. We'll have patient seen by dietary today. Continue dietary and exercise regimen. Follow-up 1 year. Plan: Date: Initial Weight: 86.682 kg Initial BMI: Current Weight: Current BMI: Type of Surgery: Total Volume in Band: Previous Volume: Volume Removed: Volume Added: Band Size:
[2021-02-23 14:40] VITALS: BP 127/78; PULSE 112; TEMP 98.4; BMI 28.8
== END ==
LOC: BARWHC3 13:56
PROVIDERS: ATTEND Surgery
DX: E66.01 Morbid (severe) obesity due to excess calories (principal); Z98.84 Bariatric surgery status; Z68.28 Body mass index [BMI] 28.0-28.9, adult; Z71.3 Dietary counseling and surveillance; Z88.6 Allergy status to analgesic agent; Z91.010 Allergy to peanuts; Z91.018 Allergy to other foods; Z88.8 Allergy status to other drugs, medicaments and biological substances
CPT/HCPCS: 97803; 99211

== ENCOUNTER → 2021-02-23 | Outpatient (CLI) | payer BC ==
[2021-02-24 07:55] LABS: T4, Free (Free Thyroxine) 1.04 ng/dL (0.800-1.800)
== END | disposition home or self-care (01) ==
LOC: LABWHC1 15:09
PROVIDERS: ATTEND Internal Medicine Endocrinology, Diabetes & Metabolism
DX: E05.90 Thyrotoxicosis, unspecified without thyrotoxic crisis or storm (principal)
CPT/HCPCS: 36415; 84439; 84443; 84480

== ENCOUNTER → 2021-06-28 | Outpatient (CLI) | payer BC ==
--- NOTE | 2021-06-28 16:36 | XR ---
EXAMINATION TYPE: XR chest 2V DATE OF EXAM: 06/28/2021 COMPARISON: NONE HISTORY: R0602,[id number],R05 SOB,ASTHMA,COUGH TECHNIQUE: Frontal and lateral views of the chest are obtained. FINDINGS: There is no focal air space opacity, pleural effusion, or pneumothorax seen. The cardiac silhouette size is within normal limits. There is bronchial wall thickening present. The osseous str uctures are intact. IMPRESSION: Correlate for bronchitis, reactive airways disease, follow-up as indicated
== END | disposition home or self-care (01) ==
LOC: RADXRYALE 15:50
PROVIDERS: ATTEND Physician Assistant
DX: J45.20 Mild intermittent asthma, uncomplicated (principal)
CPT/HCPCS: 71046

== ENCOUNTER → 2021-07-14 | Outpatient (CLI) | payer BC | END | disposition home or self-care (01) | LOC: LABWHC1 14:48 | PROVIDERS: ATTEND Internal Medicine Critical Care Medicine | DX: J45.909 Unspecified asthma, uncomplicated (principal); R05.9 Cough, unspecified | CPT/HCPCS: 36415; 86001; 86606; 86609 ==

== ENCOUNTER → 2021-10-07 | Outpatient (CLI) | payer BC ==
[2021-10-08 00:33] LABS: T4, Free (Free Thyroxine) 1.01 ng/dL (0.800-1.800)
== END | disposition home or self-care (01) ==
LOC: LABWHC1 14:23
PROVIDERS: ATTEND Internal Medicine Endocrinology, Diabetes & Metabolism
DX: E05.90 Thyrotoxicosis, unspecified without thyrotoxic crisis or storm (principal)
CPT/HCPCS: 36415; 84439; 84443; 84480

== ENCOUNTER → 2022-01-25 | Outpatient (CLI) | payer BC ==
--- NOTE | 2022-01-26 08:04 | MM ---
Reason for Exam: Screening (asymptomatic). Last screening mammogram was performed 12 month(s) ago. Patient History: Menarche at age 10. First Full-Term at age 21. Patient used Hormonal Contraceptives for 5 years. Maternal grandmother had breast cancer, age 72. Last menstrual period: 01/20/2022 Risk Values: Kelly 5 year model risk: 0.4%. NCI Lifetime model risk: 9.1%. Prior Study Comparison: 12/30/2019 Bilateral Screening Mammogram, [facility]. 01/15/2021 Bilateral Diagnostic Mammogram, [facility]. Tissue Density: The breast tissue is heterogeneously dense. This may lower the sensitivity of mammography. Findings: Analyzed By CAD. There is stable oval circumscribed 1.2 cm mass anteriorly in the right breast corresponds to a well-circumscribed mass on ultrasound thought to reflect fibroadenoma There is no suspicious new group of microcalcifications or suspicious enlarging mass in either breast. Overall Assessment: Benign, BI-RAD 2 Management: Screening Mammogram of both breasts at age 38. A clinical breast exam by your physician is recommended on an annual basis and results should be correlated with mammographic findings. Electronically signed and approved by: Gunner Barrera M.D.
== END | disposition home or self-care (01) ==
LOC: RADMAMWWP 07:48
PROVIDERS: ATTEND Family Medicine
DX: Z12.31 Encounter for screening mammogram for malignant neoplasm of breast (principal); Z80.3 Family history of malignant neoplasm of breast
CPT/HCPCS: 77063; 77067

== ENCOUNTER → 2022-02-15 | Outpatient (CLI) | payer BC ==
[2022-02-15 14:11] VITALS: BP 142/78; PULSE 101; RESP 16; TEMP 98.6; BMI 25.6
--- NOTE | 2022-02-15 15:43 | P.BASOAP ---
Subjective Progress Note Date: 02/15/22 Principal diagnosis: morbid obesity patient returns for reevaluation. She was last seen 1 year ago. She has lost 16 pounds since then. Patient says she has had multiple pulmonary illnesses. She thinks she had Covid 4 separate times. Patient with history of underlying asthma and pulmonary issues. She sees Dr. Torres for that. Patient does have nighttime reflux. She has episodes of regurgitation at night with choking episodes. This usually occurs once every few weeks. She does sleep propped up on 2 pillows. Takes antiacids once daily. She has had some voice hoarseness. Patient also has complaints of abdominal bloating and some abdominal pain at times. No rectal bleeding. Some constipation. Objective - Vital Signs Vital signs: Vital Signs Temp 98.6 F 02/15/22 14:08 Pulse 101 H 02/15/22 14:08 Resp 16 02/15/22 14:08 BP 142/78 02/15/22 14:08 Pulse Ox FiO2 Intake & Output 02/14/22 02/15/22 02/15/22 18:59 06:59 18:59 Weight 57.606 kg - Exam Abdomen: Soft, nontender, nondistended Assessment/Plan (1) Morbid obesity Narrative/Plan: 36-year-old female having intermittent pulmonary issues. This may be on the basis of nighttime reflux and aspiration. Patient with abdominal discomfort and change in bowel habits along with her GERD symptoms. Will proceed with upper and lower endoscopy at this time. We'll consider CT chest or possible CT chest abdomen and pelvis following that. Plan: Date: 02/15/22 Initial Weight: 86.682 kg Initial BMI: 38.5 Current Weight: 57.606 kg Current BMI: 25.6 Type of Surgery: Total Volume in Band: Previous Volume: Volume Removed: Volume Added: Band Size:
== END ==
LOC: BARWHC3 13:57
PROVIDERS: ATTEND Surgery
DX: E66.01 Morbid (severe) obesity due to excess calories (principal); Z68.25 Body mass index [BMI] 25.0-25.9, adult; Z91.010 Allergy to peanuts; Z88.6 Allergy status to analgesic agent; Z88.8 Allergy status to other drugs, medicaments and biological substances; Z91.018 Allergy to other foods
CPT/HCPCS: 99211

== ENCOUNTER → 2022-03-03 | Outpatient (CLI) | payer BC ==
--- NOTE | 2022-03-03 09:28 | US ---
EXAMINATION TYPE: US thyroid st tissue head/neck DATE OF EXAM: 03/03/2022 COMPARISON: 11/03/2020 CLINICAL HISTORY: 36-year-old female E04.2 NONTOXIC MULTINODULAR GOITER. Thyroid nodule TECHNIQUE: Multiple sonographic images of the thyroid gland are obtained. FINDINGS: GLAND SIZE: Right Lobe: 5.5 x 1.7 x 2.5 cm Overall Parenchyma: homogenous Left Lobe: 5.8 x 1.6 x 2.1 cm Overall Parenchyma: homogeneous Isthmus Thickness: cm NODULES RIGHT: # of nodules measured on right: Numerous tiny scattered subcentimeter nodules measuring up t o 5 mm. LEFT: # of nodules measured on left: 1 1. .5 X .3 x .5 cm, mid , solid or almost completely solid, hypoechoic nodule, which is wide as arline l, with smooth margins, without echogenic foci. Prior size: .5 x .4 x .5 cm ISTHMUS: # of nodules measured in the isthmus: 0 Bilateral neck scanned, no evidence of lymphadenopathy. IMPRESSION: A small 5 mm TR4 nodule at the left midpole remains unchanged. Additional scattered 5 mm and smaller nodules on the right are also redemonstrated. No suspicious enlarging nodule seen. In
[2022-03-03 15:47] LABS: T4, Free (Free Thyroxine) 1.08 ng/dL (0.800-1.800)
== END | disposition home or self-care (01) ==
LOC: RADUSWWP 08:06
PROVIDERS: ATTEND Internal Medicine Endocrinology, Diabetes & Metabolism
DX: E04.2 Nontoxic multinodular goiter (principal); E05.90 Thyrotoxicosis, unspecified without thyrotoxic crisis or storm
CPT/HCPCS: 76536; 84439; 84443; 84480

== ENCOUNTER 2022-03-08 09:28 | Day surgery (SDC) | payer BC ==
[2022-03-04 09:53] VITALS: BMI 24.0
[~2022-03-08 09:28] MED LIST changes: -DEXAMETHASONE SOD PHOSPHATE 10 MG/ML 1 ML VIAL IV ONE; -ENOXAPARIN 40 MG/0.4 ML SYRINGE SQ ONE; +LIDOCAINE 1% (10MG/ML) FOR IV START INTRADERMA PRN; -METHYLENE BLUE 15 MG in DEXTROSE 5% IN WATER 500 ML IRRIGATION ONE; -MIDAZOLAM 2 MG/2 ML VIAL IV PRN; -ONDANSETRON 4 MG/2 ML VIAL IVP ONE; -SCOPOLAMINE 1.5MG/72HR PATCH TRANSDERM ONE; -ceFAZolin 2 GM in SODIUM CHLORIDE 0.9% 100 ML IVPB ONE
[2022-03-08 10:23] VITALS: TEMP 97.7
[2022-03-08] MEDS ORDERED: PROPOFOL 10 MG/ML 20 ML VIAL IV ONE (10:45)
[2022-03-08] MEDS ORDERED: LIDOCAINE 2% INJ 20 MG/ML (2 ML VIAL) ONE (10:45)
--- NOTE | 2022-03-08 10:48 | P.GSHP ---
History of Present Illness H&P Date: 03/08/22 Chief Complaint: GERD, change in bowel habits 36-year-old female here today for upper and lower endoscopy. Patient with history of chronic reflux after previous sleeve gastrectomy. Patient has had some pulmonary issues that may be related to chronic reflux. Also patient with history of crampy abdominal pain and constipation. No rectal bleeding or melena. Past Medical History Past Medical History: Asthma, GERD/Reflux, Thyroid Disorder Additional Past Medical History / Comment(s): Seasonal Allergies. Cerebral Pseudo-tumor. Polycystic Ovarian Syndrome vs dermoid cyst, hyperthyroid History of Any Multi-Drug Resistant Organisms: None Reported Past Surgical History: Bariatric Surgery, Section, Cholecystectomy Additional Past Surgical History / Comment(s): Cholecystectomy (2011), x2 (2007 and 2009). EXC WISDOM TEETH. EGD W/ BIOPSY 08/17/16. 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 Past Anesthesia/Blood Transfusion Reactions: Previous Problems w/ Anesthesia, Motion Sickness, Postoperative Nausea & Vomiting (PONV) Additional Past Anesthesia/Blood Transfusion Reaction / Comment(s): "FACE ITCHY." No hx of blood transfusions, urinary retention after general anesthesia Smoking Status: Never smoker - Past Family History Mother Additional Family Medical History / Comment(s): depression, at age 42, hypoglycemia, Father Family Medical History: Hypertension Medications and Allergies Home Medications Medication Instructions Recorded Confirmed Type Mirtazapine [Remeron] 30 mg PO HS 02/09/16 03/08/22 History Omeprazole [PriLOSEC] 20 mg PO BID 02/09/16 03/08/22 History Albuterol Inhaler [Ventolin Hfa 1 - 2 puff INHALATION RT-Q6H PRN 08/15/16 03/08/22 History Inhaler] EPINEPHrine (Auto Inject) [Epipen] 0.3 mg IM ONCE PRN 08/15/16 03/08/22 History Cetirizine HCl [Zyrtec] 10 mg PO HS 09/06/16 03/08/22 History methIMAzole [Tapazole] 2.5 mg PO HS 09/18/18 03/08/22 History Cholecalciferol (Vitamin D3) 5,000 mg PO BID 02/24/21 03/08/22 History [Vitamin D3 (3000 Iu)] Montelukast [Singulair] 10 mg PO HS 02/24/21 03/08/22 History Topiramate 50 mg PO BID 02/24/21 03/08/22 History buPROPion HCL [Wellbutrin XL] 300 mg PO DAILY 02/24/21 03/08/22 History ALPRAZolam [Xanax] 0.5 mg PO DAILY PRN 03/04/22 03/08/22 History Acetaminophen Tab [Tylenol Tab] 1,000 mg PO Q6HR PRN 03/04/22 03/08/22 History Fluticasone Nasal Dawson [Flonase 1 spray EA NOSTRIL DAILY 03/04/22 03/08/22 History Nasal Dawson] L.acidoph,Paracasei, B.lactis 1 tab PO DAILY 03/04/22 03/08/22 History [Probiotic] Quercetin 1 tab PO DAILY 03/04/22 03/08/22 History Umeclidinium Brm/Vilanterol Tr 62.5 mg INHALATION DAILY 03/04/22 03/08/22 History [Anoro Ellipta 62.5-25 Mcg INH] Allergies Allergy/AdvReac Type Severity Reaction Status Date / Time peanut Allergy Severe BURNING Verified 03/08/22 10:15 INSIDE BODY, Itching, COUGH aspirin Allergy Itching Verified 03/08/22 10:15 [From Excedrin Back and Body] banana Allergy EAR Verified 03/08/22 10:15 ITCHING, COUGH butalbital [From Fioricet] Allergy Rash/Hives Verified 03/08/22 10:15 caffeine [From Fioricet] Allergy Rash/Hives Verified 03/08/22 10:15 calcium carbonate Allergy Itching Verified 03/08/22 10:15 [From Excedrin Back and Body] ibuprofen Allergy Itching Verified 03/08/22 10:15 naproxen [From Aleve] Allergy Itching Verified 03/08/22 10:15 Surgical - Exam Vital Signs Temp Pulse Resp BP Pulse Ox 97.7 F 82 18 122/81 97 03/08/22 10:10 03/08/22 10:10 03/08/22 10:10 03/08/22 10:10 03/08/22 10:10 Physical exam: General: Well-developed, well-nourished HEENT: Normocephalic, sclerae nonicteric Abdomen: Nontender, nondistended Extremities: No edema Neuro: Alert and oriented Assessment and Plan (1) GERD (gastroesophageal reflux disease) Narrative/Plan: Will proceed with EGD and colonoscopy at this time. Current Visit: No Status: Acute Code(s): K21.9 - GASTRO-ESOPHAGEAL REFLUX DISEASE WITHOUT ESOPHAGITIS SNOMED Code(s): 772038098
--- NOTE | 2022-03-08 11:04 | P.PCN ---
Date of Procedure: 03/08/22 Procedure(s) Performed: PREOPERATIVE DIAGNOSIS: GERD, change in bowel habits POSTOPERATIVE DIAGNOSIS: Mild gastritis, PROCEDURE: 1. EGD with biopsy 2. Colonoscopy ANESTHESIA: MAC SURGEON: Torres Reed M.D. SPECIMENS: Antrum ENDOSCOPIC PROCEDURE: The patient was on the endoscopy table in the left decub itus position. The Olympus gastroscope was inserted into the oropharynx and passed under direct visualization to the region of the third portion of the duodenum. From that point the scope was slowly withdrawn inspecting all surfaces carefully. There were no neoplastic inflammatory or polypoid lesions throughout the duodenum. The pylorus was widely patent. The stomach was carefully inspected. There was mild gastritis present. A biopsy of the antrum took place to rule out H. pylori. The esophagus was then carefully examined. There were no neoplastic inflammatory or polypoid lesions throughout the visualized esophagus. The patient was kept on the endoscopy table in the left decubitus position. The Olympus colonoscope was inserted into the anus and passed under direct visualization to the base of the cecum. The appendiceal orifice was visualized. From that point the scope was slowly withdrawn inspecting all surfaces carefully. There were no neoplastic inflammatory or polypoid lesions throughout the cecum, ascending, transverse, descending, sigmoid and rectum. There was no visible diverticulosis noted. Digital rectal examination was normal. The patient was taken to the recovery room in stable condition per anesthesia guidelines. RECOMMENDATIONS: Resume diet. Await biopsy results. Continue antiacid therapy. Follow colonoscopy in 10 years.
[2022-03-08 11:27] VITALS: BP 129/68; PULSE 78; RESP 18
== END 2022-03-08 11:57 | disposition home or self-care (01) ==
LOC: ORWHC2ENDO 09:28
PROVIDERS: ATTEND Surgery
DX: K29.50 Unspecified chronic gastritis without bleeding (principal); K21.9 Gastro-esophageal reflux disease without esophagitis; J45.909 Unspecified asthma, uncomplicated; E07.9 Disorder of thyroid, unspecified; Z98.84 Bariatric surgery status; Z90.49 Acquired absence of other specified parts of digestive tract; Z82.49 Family history of ischemic heart disease and other diseases of the circulatory system; Z79.899 Other long term (current) drug therapy; Z88.6 Allergy status to analgesic agent
CPT/HCPCS: 81025; 88305; 43239; J2704; J2001

== ENCOUNTER → 2022-03-21 | Outpatient (CLI) | payer BC ==
[2022-03-21 14:50] LABS: Basophils # (A) 0.04 X 10*3/uL (0.00-0.10); Basophils % (A) 0.7 %; Eosinophils # (A) 0.02 X 10*3/uL (0.04-0.35); Eosinophils % (A) 0.4 %; HCT 38.6 % (37.2-46.3); HGB 12.1 g/dL (12.0-15.0); Immature Grans, Automated 0.2 %; Lymphocytes # (A) 2.33 X 10*3/uL (0.90-5.00); Lymphocytes % (A) 43.1 %; MCH 26.8 pg (27.0-32.0); MCHC 31.3 g/dL (32.0-37.0); MCV 85.6 fL (80.0-97.0); Mean Platelet Volume 8.8 fL (9.5-12.2); Monocytes % (A) 5.5 %; NRBC Per 100 WBC 0 /100 WBCS (0.0-0.0); Neutrophils # (A) 2.71 X 10*3/uL (1.80-7.70); Neutrophils % (A) 50.1 %; Platelet Count 336 X 10*3/uL (140-440); RBC 4.51 X 10*6/uL (4.10-5.20); RDW 12.5 % (11.5-14.5); WBC 5.41 X 10*3/uL (4.50-10.00)
[2022-03-21 14:53] LABS: African American GFR (CKD) 128.5 (60.0-200.0); Anion Gap 9.9 mmol/L (10.00-18.00); Carbon Dioxide 22.4 mmol/L (20.0-27.5); Non-African American GFR(CKD) 110.9 (60.0-200.0); Potassium 3.7 mmol/L (3.5-5.5)
== END | disposition home or self-care (01) ==
LOC: LABPAT 10:42
PROVIDERS: ATTEND Obstetrics & Gynecology
DX: Z01.812 Encounter for preprocedural laboratory examination (principal); D36.9 Benign neoplasm, unspecified site; R10.32 Left lower quadrant pain
CPT/HCPCS: 36415; 80051; 82565; 82947; 84520; 85025; 87086

== ENCOUNTER 2022-03-29 07:32 | Inpatient (IN) | payer BC ==
[~2022-03-29 07:32] MED LIST changes: +DEXAMETHASONE SOD PHOSPHATE 4 MG/ML 1 ML VIAL IV ONE; -LACTATED RINGERS 1,000 ML IV SCH; +MIDAZOLAM 2 MG/2 ML VIAL IV PRN; +ONDANSETRON 4 MG/2 ML VIAL IVP ONE
[2022-03-29] MEDS: LACTATED RINGERS 1,000 ML IV SCH ×3 (08:01→20:28)
[2022-03-29] MEDS ORDERED: diphenhydrAMINE 50 MG/ML 1 ML VIAL ONE (08:10)
[2022-03-29] MEDS ORDERED: ONDANSETRON 4 MG/2 ML VIAL ONE (08:10)
[2022-03-29] MEDS ORDERED: ONDANSETRON 4 MG/2 ML VIAL IVP ONE (08:15)
[2022-03-29] MEDS ORDERED: diphenhydrAMINE 50 MG/ML 1 ML VIAL IVP ONE (08:15)
[2022-03-29] MEDS ORDERED: DEXAMETHASONE SOD PHOSPHATE 4 MG/ML 1 ML VIAL IVP ONE (08:15)
[2022-03-29] MEDS ORDERED: MIDAZOLAM 2 MG/2 ML VIAL IV ONE ×2 (08:50→08:51)
[2022-03-29] MEDS ORDERED: SUGAMMADEX SODIUM 200 MG/2 ML SDV IV ONE (10:14)
[2022-03-29] MEDS ORDERED: fentaNYL (PF) 50 MCG/ML 2 ML AMP ONE (10:14)
[2022-03-29] MEDS ORDERED: PROPOFOL 10 MG/ML 20 ML VIAL IV ONE (10:14)
[2022-03-29] MEDS ORDERED: MIDAZOLAM 2 MG/2 ML VIAL ONE (10:14)
[2022-03-29] MEDS ORDERED: LIDOCAINE 2% INJ 20 MG/ML (2 ML VIAL) ONE (10:14)
[2022-03-29] MEDS ORDERED: ROCURONIUM 10 MG/ML (5 ML VIAL) IV ONE (10:14)
[2022-03-29] MEDS ORDERED: LACTATED RINGERS 1,000 ML IV ONE (10:20)
--- NOTE | 2022-03-29 11:07 | P.OP ---
Date of Procedure: 03/29/22 Preoperative Diagnosis: Left ovarian mass, possible dermoid Postoperative Diagnosis: Same Procedure(s) Performed: Exploratory laparotomy with left salpingo-oophorectomy Anesthesia: ANGIE Surgeon: Cleopatra Murillo [employer] #1: Benji Preston Estimated Blood Loss (ml): 5 IV fluids (ml): 1,200 Urine output (ml): 300 Pathology: other (Left fallopian tube and ovary) Condition: stable Disposition: PACU Indications for Procedure: Abdominal pain and findings of left ovarian cyst consistent with dermoid Operative Findings: Enlarged left ovary with cystic and solid components approximately 5 cm, benign appearing. Normal left fallopian tube. Normal uterus, right fallopian tube and right ovary. Description of Procedure: After the patient was met in the preoperative holding area and all questions were answered, she was taken to the operating room where anesthetic was administered without incident. Appropriate timeout procedure was undertaken. A low transverse skin incision was made following the pre-existing scar. This was carried down to the underlying fascia sharply. Fascia was incised in the midline and extended bilaterally. The superior and inferior aspects of the fascial incision were elevated and the underlying rectus muscles dissected off sharply. The rectus muscles were in the midline and the peritoneum was tented up and entered sharply. The peritoneal incision was extended with Metzenbaum scissors. Pelvic with was explored and enlarged left ovary was identified and able to be elevated out of the incision. The enlarged ovary and fallopian tube were identified. Parul clamp was placed across the infundibulopelvic ligament and tubo-ovarian pedicle. The specimen was removed. The pedicle was then doubly suture ligated with 2-0 Vicryl suture. This was inspected and noted to be hemostatic. The uterus was directly visualized and appeared grossly normal. The right fallopian tube and ovary were directly visu alized and palpated and were grossly normal in appearance and size. The surgical site was reinspected and noted to be hemostatic. The rectus muscles were then reapproximated in the midline with 2-0 Vicryl suture. The peritoneal edges rectus muscles and fascial edges were inspected and noted to be hemostatic. The fascia was then closed in a running fashion with 0 Vicryl suture. Subcuticular tissue was reapproximated with 3-0 chromic. The skin was closed in a subcutaneous fashion with 4-0 Vicryl suture. Dressing was applied. All counts reported to me as correct by the operating room staff and the patient was awoken from anesthetic without incident. She was transported to recovery area in stable condition.
[2022-03-29] MEDS ORDERED: ALBUTEROL NEBULIZED 2.5 MG/3 ML INHALATION PRN (11:11)
[2022-03-29] MEDS ORDERED: ALPRAZolam 0.5 MG TAB PO PRN (11:11)
[2022-03-29] MEDS: HYDROmorphone 0.5 MG/0.5 ML SYRINGE IVP PRN ×2 (11:28→11:37)
[2022-03-29] MEDS ORDERED: METOCLOPRAMIDE 5 MG/ML 2 ML VIAL IVP PRN (12:52)
[2022-03-29] MEDS ORDERED: SIMETHICONE 80 MG CHEWABLE PO PRN (12:52)
[2022-03-29] MEDS ORDERED: ONDANSETRON 4 MG/2 ML VIAL IVP PRN (12:52)
[2022-03-29] MEDS ORDERED: diphenhydrAMINE 50 MG/ML 1 ML VIAL IVP PRN (12:52)
[2022-03-29] MEDS ORDERED: ZOLPIDEM 5 MG TAB PO PRN (12:52)
[2022-03-29] MEDS: Acetaminophen-Codeine 300-30mg TAB PO PRN ×3 (13:11→20:06)
[2022-03-29 14:43] VITALS: RESP 18
[2022-03-29] MEDS: IPRATROPIUM 0.5 MG/2.5 ML NEBU INHALATION SCH ×3 (15:00→21:33)
[2022-03-29] MEDS: traMADol 50 MG TAB PO PRN (17:36)
[2022-03-29] MEDS: TOPIRAMATE 25 MG TAB PO SCH (19:27)
[2022-03-29] MEDS: CHOLECALCIFEROL 125 MCG (5000 IU) TABLET PO SCH (19:28)
[2022-03-29 20:26] LABS: Glucose,Whole Blood 110 mg/dL (70-110)
[2022-03-29] MEDS ORDERED: methIMAzole 5 MG TAB PO SCH (21:00)
[2022-03-29] MEDS ORDERED: MONTELUKAST 10 MG TAB PO SCH (21:00)
[2022-03-29] MEDS ORDERED: LORATADINE 10 MG TAB PO SCH (21:00)
[2022-03-29] MEDS ORDERED: MIRTAZAPINE 15 MG TAB PO SCH (21:00)
[2022-03-30] MEDS: traMADol 50 MG TAB PO PRN ×2 (00:22→08:49)
[2022-03-30] MEDS: Acetaminophen-Codeine 300-30mg TAB PO PRN (04:43)
[2022-03-30 07:21] LABS: Basophils % (A) 0 %; Eosinophils % (A) 0 %; HCT 33.9 % (34.0-46.0); HGB 10.7 gm/dL (11.4-16.0); Lymphocytes # (A) 1.7 k/uL (1.0-4.8); Lymphocytes % (A) 30 %; MCH 26.9 pg (25.0-35.0); MCHC 31.5 g/dL (31.0-37.0); MCV 85.2 fL (80.0-100.0); Mean Platelet Volume 6.7; Monocytes # (A) 0.3 k/uL (0-1.0); Monocytes % (A) 5 %; Neutrophils # (A) 3.5 k/uL (1.3-7.7); Neutrophils % (A) 62 %; Platelet Count 249 k/uL (150-450); RBC 3.98 m/uL (3.80-5.40); RDW 13.3 % (11.5-15.5); WBC 5.7 k/uL (3.8-10.6)
[2022-03-30] MEDS ORDERED: PANTOPRAZOLE 40 MG TABLET PO SCH (07:30)
--- NOTE | 2022-03-30 07:33 | P.DS ---
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 She underwent an exploratory laparotomy with left salpingo-oophorectomy. Findings at the time of surgery were consistent with a benign appearing enlarged cystic and solid ovarian mass, approximate 5 cm. See the operative report for details. Her postoperative course was essentially unremarkable. By the evening of postoperative day 0 she was tolerating a general diet however when she got up to the bathroom for the first time of catheter out she did have some dizziness. This did resolve and her vital signs were stable. By the morning of postoperative day #1 she was ambulating and voiding without difficulty. Her pain was well-controlled with oral pain medications. Her incision was dry with dressing intact. Abdomen was soft with moderate appropriate tenderness. Extremities are free of any edema or erythema She was therefore discharged home 's operative day #1 with routine instructions for postoperative care and follow- up. Pathology is pending. Plan - Discharge Summary Discharge Rx Participant: No New Discharge Prescriptions: New Acetaminophen-Codeine 300-30mg [Tylenol w/codeine #3] 1 each PO Q4HR PRN #20 tab PRN Reason: Moderate Pain (Scale 4 To 6) traMADol HCl [Ultram] 50 mg PO QID PRN #20 tab PRN Reason: Pain No Action Omeprazole [PriLOSEC] 20 mg PO BID Mirtazapine [Remeron] 30 mg PO HS EPINEPHrine (Auto Inject) [Epipen] 0.3 mg IM ONCE PRN PRN Reason: Anaphylaxis Albuterol Inhaler [Ventolin Hfa Inhaler] 1 - 2 puff INHALATION RT-Q6H PRN PRN Reason: ASTHMA SX Cetirizine HCl [Zyrtec] 10 mg PO HS methIMAzole [Tapazole] 2.5 mg PO HS buPROPion HCL [Wellbutrin XL] 300 mg PO QAM Montelukast [Singulair] 10 mg PO HS Topiramate 50 mg PO BID Cholecalciferol (Vitamin D3) [Vitamin D3 (3000 Iu)] 5,000 mg PO BID Acetaminophen Tab [Tylenol Tab] 1,000 mg PO Q6HR PRN PRN Reason: Pain ALPRAZolam [Xanax] 0.5 mg PO DAILY PRN PRN Reason: Anxiety Umeclidinium Brm/Vilanterol Tr [Anoro Ellipta 62.5-25 Mcg INH] 62.5 mg INHALATION QAM L.acidoph,Paracasei, B.lactis [Probiotic] 1 tab PO DAILY Fluconazole 150 mg PO MO diphenhydrAMINE [Benadryl] 50 mg PO DAILY PRN PRN Reason: Allergy Symptoms Discharge Medication List Mirtazapine [Remeron] 30 mg PO HS 02/09/16 [History] Omeprazole [PriLOSEC] 20 mg PO BID 02/09/16 [History] Albuterol Inhaler [Ventolin Hfa Inhaler] 1 - 2 puff INHALATION RT-Q6H PRN 08/15/16 [History] EPINEPHrine (Auto Inject) [Epipen] 0.3 mg IM ONCE PRN 08/15/16 [History] Cetirizine HCl [Zyrtec] 10 mg PO HS 09/06/16 [History] methIMAzole [Tapazole] 2.5 mg PO HS 09/18/18 [History] Cholecalciferol (Vitamin D3) [Vitamin D3 (3000 Iu)] 5,000 mg PO BID 02/24/21 [History] Montelukast [Singulair] 10 mg PO HS 02/24/21 [History] Topiramate 50 mg PO BID 02/24/21 [History] buPROPion HCL [Wellbutrin XL] 300 mg PO QAM 02/24/21 [History] ALPRAZolam [Xanax] 0.5 mg PO DAILY PRN 03/04/22 [History] Acetaminophen Tab [Tylenol Tab] 1,000 mg PO Q6HR PRN 03/04/22 [History] L.acidoph,Paracasei, B.lactis [Probiotic] 1 tab PO DAILY 03/04/22 [History] Umeclidinium Brm/Vilanterol Tr [Anoro Ellipta 62.5-25 Mcg INH] 62.5 mg INHALATION QAM 03/04/22 [History] Fluconazole 150 mg PO MO 03/25/22 [History] diphenhydrAMINE [Benadryl] 50 mg PO DAILY PRN 03/25/22 [History] Acetaminophen-Codeine 300-30mg [Tylenol w/codeine #3] 1 each PO Q4HR PRN #20 tab 03/30/22 [Rx] traMADol HCl [Ultram] 50 mg PO QID PRN #20 tab 03/30/22 [Rx] Follow up Appointment(s)/Referral(s): Cleopatra Murillo MD [STAFF PHYSICIAN] - 1 Week Activity/Diet/Wound Care/Special Instructions: Follow-up in 1- 2 weeks after surgery in the office. Call the office with any concerning signs or symptoms including fever greater than 101, severe abdominal pain, heavy vaginal bleeding, signs of wound infection, increased swelling or redness of the lower extremities. No driving for 2 weeks after surgery. No heavy lifting or vigorous activity until reevaluated in the office. . Discharge Disposition: HOME SELF-CARE
[2022-03-30] MEDS ORDERED: FORMOTEROL FUMARATE 20 MCG/2 ML NEBU INHALATION SCH (08:00)
[2022-03-30] MEDS: IPRATROPIUM 0.5 MG/2.5 ML NEBU INHALATION SCH (08:45)
[2022-03-30 08:48] VITALS: BP 115/77; TEMP 98.4
[2022-03-30] MEDS: CHOLECALCIFEROL 125 MCG (5000 IU) TABLET PO SCH (08:51)
[2022-03-30] MEDS: TOPIRAMATE 25 MG TAB PO SCH (08:52)
[2022-03-30 08:56] VITALS: PULSE 92
[2022-03-30] MEDS ORDERED: buPROPion XL 300 MG TAB.ER.24H PO SCH (09:00)
[2022-03-30] MEDS ORDERED: ACETAMINOPHEN TAB 325 MG TAB PO PRN (11:08)
== END 2022-03-30 12:00 | disposition home or self-care (01) | DRG 743 ==
LOC: 2ORMAIN 07:32 → 4FBP 11:39
PROVIDERS: ADMIT Obstetrics & Gynecology; ATTEND Obstetrics & Gynecology
PROC: 0UT10ZZ Resection of Left Ovary, Open Approach (ICD-10-PCS; 2022-03-29)
PROC: 0UT60ZZ Resection of Left Fallopian Tube, Open Approach (ICD-10-PCS; principal; 2022-03-29 09:15)
DX: D27.1 Benign neoplasm of left ovary (principal); F32.A Depression, unspecified; J45.909 Unspecified asthma, uncomplicated; F17.210 Nicotine dependence, cigarettes, uncomplicated; G93.2 Benign intracranial hypertension; E28.2 Polycystic ovarian syndrome; N91.5 Oligomenorrhea, unspecified; A60.09 Herpesviral infection of other urogenital tract; Z88.6 Allergy status to analgesic agent; Z91.018 Allergy to other foods
CPT/HCPCS: 81025; 85025; 86850; 86900; 86901; 88307; 94640

== ENCOUNTER → 2022-06-27 | Outpatient (CLI) | payer BC | END | disposition home or self-care (01) | LOC: LABWHC1 11:06 | PROVIDERS: ATTEND Otolaryngology | DX: J30.89 Other allergic rhinitis (principal) | CPT/HCPCS: 36415 ==

== ENCOUNTER → 2022-08-23 | Outpatient (CLI) | payer BC ==
[2022-08-23 14:17] VITALS: BP 127/77; PULSE 94; RESP 16; TEMP 98.9; BMI 28.0
--- NOTE | 2022-08-23 14:50 | P.BASOAP ---
Subjective Progress Note Date: 08/23/22 Principal diagnosis: Morbid obesity Patient returns for recheck. Last seen in February. At the time the patient was having a variety of issues. She was having nighttime reflux, aspiration, regurgitation, vomiting, abdominal pain, pulmonary issues. She had her omeprazole increased to twice daily. She started sleeping propped up on a pillow. She had an upper and lower endoscopy. Subsequent to that the patient had a gynecologic procedure with oophorectomy and salpingectomy. Doing better at this time. She has put on some weight. She says her anxiety and depression medications were modified somewhat. She now is only had 2 episodes of nighttime reflux since her last visit. The one episode was recently and she admits that she was drinking close to bedtime that day. She is due for annual labs. She is 6 years out from sleep gastrectomy next month. BMI today 28. Objective - Vital Signs Vital signs: Vital Signs Temp 98.9 F 08/23/22 14:15 Pulse 94 08/23/22 14:15 Resp 16 08/23/22 14:15 BP 127/77 08/23/22 14:15 Pulse Ox FiO2 Intake & Output 08/22/22 08/23/22 08/23/22 18:59 06:59 18:59 Weight 63.049 kg - Exam Abdomen: Soft, nontender, nondistended Assessment/Plan (1) Morbid obesity Narrative/Plan: Patient doing well at this time. Continue dietary and exercise regimen. Continue avoiding drinking later in the day. Continue antiacid regimen. Check annual labs. Follow-up 1 year. Plan: Date: 08/23/22 Initial Weight: 86.682 kg Initial BMI: 38.5 Current Weight: 63.049 kg Current BMI: 28.0 Type of Surgery: Vertical Sleeve Gastrectomy Total Volume in Band: Previous Volume: Volume Removed: Volume Added: Band Size:
== END ==
LOC: BARWHC3 13:51
PROVIDERS: ATTEND Surgery
DX: E66.01 Morbid (severe) obesity due to excess calories (principal); Z71.3 Dietary counseling and surveillance; Z68.28 Body mass index [BMI] 28.0-28.9, adult; Z91.010 Allergy to peanuts; Z91.018 Allergy to other foods; Z88.6 Allergy status to analgesic agent; Z88.1 Allergy status to other antibiotic agents; Z91.048 Other nonmedicinal substance allergy status; Z88.8 Allergy status to other drugs, medicaments and biological substances
CPT/HCPCS: 99211

== ENCOUNTER → 2022-08-30 | Outpatient (CLI) | payer BC ==
[2022-08-31 05:23] LABS: HCT 38.2 % (37.2-46.3); HGB 11.5 d/dL (12.0-15.0); MCHC 30.1 d/dL (32.0-37.0); MCV 86.2 FL (80.0-97.0); Mean Platelet Volume 9.2 FL (9.5-12.2); NRBC Per 100 WBC 0 X 10*3/uL (0.00-0.01); Platelet Count 357 X 10*3/uL (140-440); RBC 4.43 X 10*6/uL (4.10-5.20); RDW 12.8 % (11.5-14.5); WBC 5.84 X 10*3/uL (4.50-10.00)
[2022-08-31 12:26] LABS: ALT 35 U/L (8-44); AST 26 U/L (13-35); Albumin 4.6 d/dL (3.8-4.9); Albumin/Globulin Ratio 1.92 Ratio (1.60-3.17); Alkaline Phosphatase 58 U/L (41-126); BUN/Creat Ratio 18.57 Ratio (12.00-20.00); Calcium 9.9 mg/dL (8.7-10.3); Carbon Dioxide 26.7 mmol/L (21.6-31.8); Chloride 102 mmol/L (96-109); Globulin 2.4 d/dL (1.6-3.3); Glucose 91 mg/dL (70-110); Iron 28 UG/DL (50-170); Potassium 4.6 mmol/L (3.5-5.5); Sodium 141 mmol/L (135-145); T4, Free (Free Thyroxine) 1.06 ng/dL (0.80-1.80); Total Bilirubin <0.2 mg/dL (0.3-1.2)
== END | disposition home or self-care (01) ==
LOC: LABWHC1 12:10
PROVIDERS: ATTEND Internal Medicine
DX: E05.90 Thyrotoxicosis, unspecified without thyrotoxic crisis or storm (principal); K90.89 Other intestinal malabsorption; E55.9 Vitamin D deficiency, unspecified; E66.01 Morbid (severe) obesity due to excess calories
CPT/HCPCS: 36415; 80053; 82306; 82607; 82746; 83540; 84425; 84439; 84443; 84481; 85027

== ENCOUNTER → 2023-03-18 | Outpatient (CLI) | payer BC ==
[2023-03-18 23:03] LABS: HCT 42.3 % (37.2-46.3); HGB 14.2 g/dL (12.0-15.0); MCH 30.8 pg (27.0-32.0); MCHC 33.6 g/dL (32.0-37.0); MCV 91.8 FL (80.0-97.0); Mean Platelet Volume 8.5 FL (9.5-12.2); NRBC Per 100 WBC 0 X 10*3/uL (0.00-0.01); Platelet Count 306 X 10*3/uL (140-440); RBC 4.61 X 10*6/uL (4.10-5.20); RDW 11.8 % (11.5-14.5); WBC 6.76 X 10*3/uL (4.50-10.00)
[2023-03-18 23:27] LABS: T4, Free (Free Thyroxine) 1.21 ng/dL (0.80-1.80)
== END | disposition home or self-care (01) ==
LOC: LABWHC1 10:10
PROVIDERS: ATTEND Internal Medicine
DX: E05.90 Thyrotoxicosis, unspecified without thyrotoxic crisis or storm (principal)
CPT/HCPCS: 36415; 84439; 84443; 84450; 84460; 84481; 85027

== ENCOUNTER → 2023-08-24 | Outpatient (CLI) | payer BC ==
[2023-08-24 18:16] LABS: HCT 40.6 % (37.2-46.3); HGB 13.2 g/dL (12.0-15.0); MCHC 32.5 g/dL (32.0-37.0); MCV 92.3 FL (80.0-97.0); Mean Platelet Volume 8.6 FL (9.5-12.2); NRBC Per 100 WBC 0 X 10*3/uL (0.00-0.01); Platelet Count 319 X 10*3/uL (140-440); RDW 11.6 % (11.5-14.5); WBC 7.06 X 10*3/uL (4.50-10.00)
[2023-08-24 18:35] LABS: Estradiol 65.1 pg/mL; T4, Free (Free Thyroxine) 1.17 ng/dL (0.80-1.80); Testosterone 19.7 ng/dL (9.01-47.94)
[2023-08-24 19:12] LABS: Follicle Stimulating Hormone 9.6 mIU/mL
== END | disposition home or self-care (01) ==
LOC: LABWHC1 14:08
PROVIDERS: ATTEND Obstetrics & Gynecology
DX: N95.9 Unspecified menopausal and perimenopausal disorder (principal); G47.00 Insomnia, unspecified; R53.83 Other fatigue
CPT/HCPCS: 36415; 82670; 83001; 84144; 84403; 84439; 84443; 84481; 85027

== ENCOUNTER → 2023-09-08 | Outpatient (CLI) | payer BC ==
--- NOTE | 2023-09-11 18:53 | MM ---
Reason for Exam: Screening (asymptomatic). Last mammogram was performed 1 year(s) and 7 month(s) ago. Patient History: Menarche at age 10. First Full-Term at age 21. Perimenopausal. Patient used Hormonal Contraceptives for 5 years. Maternal grandmother had breast cancer, age 72. Last menstrual period: 08/29/2023 Risk Values: Kelly 5 year model risk: 0.5%. NCI Lifetime model risk: 9.0%. Prior Study Comparison: 12/30/2019 Bilateral Screening Mammogram, [facility]. 01/15/2021 Bilateral Diagnostic Mammogram, [facility]. 01/25/2022 Bilateral MG 3D screening mammo w/cad, [facility]. Tissue Density: The breasts are heterogeneously dense, which may obscure small masses. Findings: Analyzed By CAD. There is no suspicious group of microcalcifications or new suspicious mass in either breast. Overall Assessment: Negative, BI-RAD 1 Management: Screening Mammogram of both breasts in 1 year. . Patient should continue monthly self-breast exams. A clinical breast exam by your physician is recommended on an annual basis. This exam should not preclude additional follow-up of suspicious palpable abnormalities. Note on Kelly scores and lifetime risk: 1. A Kelly score greater than 3% is considered moderate risk. If this is the case, consider specialist referral to assess eligibility for a risk reducing agent. 2. If overall lifetime risk for the development of breast cancer is 20% or higher, the patient may qualify for future screening with alternating mammogram and breast MRI. Electronically signed and approved by: Joe Morataya M.D. Radiologist
== END | disposition home or self-care (01) ==
LOC: RADMAMWWP 08:37
PROVIDERS: ATTEND Obstetrics & Gynecology
DX: Z12.31 Encounter for screening mammogram for malignant neoplasm of breast (principal); Z80.3 Family history of malignant neoplasm of breast
CPT/HCPCS: 77063; 77067

== ENCOUNTER 2023-09-11 06:57 | Emergency (ER) | payer BC ==
[2023-09-11] MEDS: SODIUM CHLORIDE 0.9% 1,000 ML IV STA (07:47)
[2023-09-11] MEDS: diphenhydrAMINE 50 MG/ML 1 ML VIAL IVP STA (07:49)
[2023-09-11] MEDS: DEXAMETHASONE SOD PHOSPHATE 10 MG/ML 1 ML VIAL IVP STA (07:53)
[2023-09-11] MEDS: METOCLOPRAMIDE 5 MG/ML 2 ML VIAL IVP STA (07:57)
[2023-09-11] MEDS: MAGNESIUM SULFATE-D5W PMX 1 GM in DEXTROSE/WATER 1 100ML.BAG IVPB ONE (08:04)
[2023-09-11] MEDS: ORPHENADRINE 30 MG/ML 2 ML VIAL IM STA (08:06)
[2023-09-11 08:11] LABS: ALT 13 U/L (4-34); AST 20 U/L (14-36); African American GFR (CKD) >90 (>60 ml/min/1.73 sqM); Albumin 4.8 g/dL (3.5-5.0); Alkaline Phosphatase 49 U/L (38-126); Anion Gap 6 mmol/L; Blood Urea Nitrogen 10 mg/dL (7-17); C Reactive Protein 0.8 mg/dL (<1.0); Calcium 9.4 mg/dL (8.4-10.2); Carbon Dioxide 25 mmol/L (22-30); Chloride 107 mmol/L (98-107); Glucose 86 mg/dL (74-99); Non-African American GFR(CKD) >90 (>60 ml/min/1.73 sqM); Potassium 3.9 mmol/L (3.5-5.1); Sodium 138 mmol/L (137-145); Total Bilirubin 0.7 mg/dL (0.2-1.3); Total Protein 7.4 g/dL (6.3-8.2)
[2023-09-11 08:29] LABS: Appearance,Urine Clear (Clear); Bilirubin,Urine Negative (Negative); Blood,Urine Negative (Negative); Color,Urine Colorless; Glucose,Urine (UA) Negative (Negative); Ketones,Urine Negative (Negative); Leukocyte Esterase,Urine Negative (Negative); Nitrite,Urine Negative (Negative); PH, Urine 7.5 (5.0-8.0); Protein,Urine Negative (Negative); Specific Gravity,Urine 1.005 (1.001-1.035); Urobilinogen,Urine <2.0 mg/dL (<2.0)
[2023-09-11 08:56] LABS: Basophils # (A) 0.1 k/uL (0-0.2); Basophils % (A) 1 %; Eosinophils # (A) 0.1 k/uL (0-0.7); Eosinophils % (A) 1 %; HGB 15.1 gm/dL (11.4-16.0); Lymphocytes # (A) 1.8 k/uL (1.0-4.8); Lymphocytes % (A) 28 %; MCH 31.2 pg (25.0-35.0); MCHC 34.3 g/dL (31.0-37.0); MCV 90.9 fL (80.0-100.0); Mean Platelet Volume 7.1; Monocytes # (A) 0.3 k/uL (0-1.0); Monocytes % (A) 5 %; Neutrophils # (A) 4.3 k/uL (1.3-7.7); Neutrophils % (A) 64 %; Platelet Count 275 k/uL (150-450); RBC 4.84 m/uL (3.80-5.40); RDW 12.2 % (11.5-15.5); WBC 6.7 k/uL (3.8-10.6)
[2023-09-11 08:58] VITALS: RESP 17
[2023-09-11] MEDS: MORPHINE SULFATE 4 MG/ML SYRINGE IVP STA (09:16)
--- NOTE | 2023-09-11 09:18 | ED ---
General Adult HPI - General Chief complaint: Headache Stated complaint: Neck Pain, Headache, Nausea, Weakness Time Seen by Provider: 09/11/23 07:05 Source: patient Mode of arrival: ambulatory Limitations: no limitations - History of Present Illness Initial comments: 38-year-old female presents emergency department for headache. States that she has had a headache for the past 3 days. States that she has had some neck stiffness which is placing a lot of pressure to the back of her head. She denies any injuries. No recent chiropractic manipulations of the neck. Pain is worse with movements to the left and right. She has taken some Tylenol at home for her symptoms without relief. She denies photophobia. No fevers. Denies any sick contacts with similar symptoms. No visual disturbance. Denies any sinus pain. No nausea or vomiting. She denies any lateralizing weakness. No other alleviating, precipitating or modifying factors - Related Data Home Medications Medication Instructions Recorded Confirmed Mirtazapine [Remeron] 45 mg PO HS 02/09/16 08/31/22 Omeprazole [PriLOSEC] 20 mg PO BID 02/09/16 08/31/22 Albuterol Inhaler [Ventolin Hfa 1 - 2 puff INHALATION RT-Q6H PRN 08/15/16 08/31/22 Inhaler] EPINEPHrine (Auto Inject) [Epipen] 0.3 mg IM ONCE PRN 08/15/16 08/31/22 Cetirizine HCl [Zyrtec] 10 mg PO HS 09/06/16 08/31/22 methIMAzole [Tapazole] 2.5 mg PO HS 09/18/18 08/31/22 Cholecalciferol (Vitamin D3) 5,000 mg PO BID 02/24/21 08/31/22 [Vitamin D3 (3000 Iu)] Montelukast [Singulair] 10 mg PO HS 02/24/21 08/31/22 buPROPion HCL [Wellbutrin XL] 150 mg PO QAM 02/24/21 08/31/22 ALPRAZolam [Xanax] 0.25 mg PO DAILY PRN 03/04/22 08/31/22 Acetaminophen Tab [Tylenol Tab] 1,000 mg PO Q6HR PRN 03/04/22 08/31/22 Umeclidinium Brm/Vilanterol Tr 62.5 mg INHALATION QAM 03/04/22 08/31/22 [Anoro Ellipta 62.5-25 Mcg INH] Fluconazole 150 mg PO MO 03/25/22 08/31/22 diphenhydrAMINE [Benadryl] 50 mg PO DAILY PRN 03/25/22 08/31/22 Ascorbic Acid [Vitamin C] 1,000 mg PO DAILY 08/31/22 08/31/22 Azelastine HCl [Astelin Nasal 137 mcg NASAL BID 08/31/22 08/31/22 [place]] Cyanocobalamin (Vitamin B-12) 1,000 mcg PO DAILY 08/31/22 08/31/22 [Vitamin B-12] Fluticasone Nasal [place] [Flonase 2 spray EA NOSTRIL HS 08/31/22 08/31/22 Nasal [place]] Folic Acid 660 mcg PO DAILY 08/31/22 08/31/22 lamoTRIgine 100 mg PO HS 08/31/22 08/31/22 Previous Rx's Medication Instructions Recorded Acetaminophen-Codeine 300-30mg 1 tab PO Q6H PRN #12 tablet 09/11/23 [Tylenol #3] Cyclobenzaprine [Flexeril] 10 mg PO TID PRN #15 tab 09/11/23 predniSONE [Deltasone] 20 mg PO BID #10 tab 09/11/23 Allergies Allergy/AdvReac Type Severity Reaction Status Date / Time peanut Allergy Severe BURNING Verified 09/11/23 07:01 INSIDE BODY, Itching, COUGH aspirin Allergy Itching Verified 09/11/23 07:01 [From Excedrin Back and Body] banana Allergy EAR Verified 09/11/23 07:01 ITCHING, COUGH butalbital [From Fioricet] Allergy Rash/Hives Verified 09/11/23 07:01 caffeine [From Fioricet] Allergy Rash/Hives Verified 09/11/23 07:01 calcium carbonate Allergy Itching Verified 09/11/23 07:01 [From Excedrin Back and Body] ibuprofen Allergy Itching Verified 09/11/23 07:01 naproxen [From Aleve] Allergy Itching Verified 09/11/23 07:01 sesame seed Allergy Rash/Hives Verified 09/11/23 07:01 adhesive AdvReac Rash/Hives Verified 09/11/23 07:01 Review of Systems ROS Statement: Those systems with pertinent positive or pertinent negative responses have been documented in the HPI. ROS Other: All systems not noted in ROS Statement are negative. Past Medical History Past Medical History: Asthma, GERD/Reflux Additional Past Medical History / Comment(s): Seasonal Allergies. Cerebral Pseudo-tumor. Polycystic Ovarian Syndrome. History of Any Multi-Drug Resistant Organisms: None Reported Past Surgical History: Bariatric Surgery, Section, Cholecystectomy Additional Past Surgical History / Comment(s): Cholecystectomy (2011), x2 (2007 and 2009). EXC WISDOM TEETH. EGD W/ BIOPSY 08/17/16. 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 Past Anesthesia/Blood Transfusion Reactions: Previous Problems w/ Anesthesia, Motion Sickness, Postoperative Nausea & Vomiting (PONV) Additional Past Anesthesia/Blood Transfusion Reaction / Comment(s): "FACE ITCHY." No hx of blood transfusions Past Psychological History: Anxiety, Depression Smoking Status: Never smoker Past Alcohol Use History: Occasional Past Drug Use History: None Reported - Past Family History Mother Additional Family Medical History / Comment(s): depression, at age 42, hypoglycemia, Father Family Medical History: Hypertension General Exam Limitations: no limitations General appearance: alert, in no apparent distress Head exam: Present: atraumatic, normocephalic, normal inspection Eye exam: Present: normal appearance, PERRL, EOMI. Absent: scleral icterus, conjunctival injection, periorbital swelling ENT exam: Present: normal exam, mucous membranes moist Neck exam: Present: tenderness (Bilaterally to the paraspinal muscles. Patient also has some tenderness to palpation of the occiput). Absent: meningismus, lymphadenopathy Respiratory exam: Present: normal lung sounds bilaterally. Absent: respiratory distress, wheezes, rales, rhonchi, stridor Cardiovascular Exam: Present: regular rate, normal rhythm, normal heart sounds. Absent: systolic murmur, diastolic murmur, rubs, gallop, clicks GI/Abdominal exam: Present: soft, normal bowel sounds. Absent: distended, tenderness, guarding, rebound, rigid Extremities exam: Present: normal inspection, full ROM, normal capillary refill. Absent: tenderness, pedal edema, joint swelling, calf tenderness Back exam: Present: normal inspection Neurological exam: Present: alert, oriented X3, CN II-XII intact Psychiatric exam: Present: normal affect, normal mood Skin exam: Present: warm, dry, intact, normal color. Absent: rash Course Vital Signs 09/11/23 09/11/23 09/11/23 06:59 08:39 10:05 Temperature 98.1 F 98 F Pulse Rate 113 H 89 82 Respiratory 20 17 17 Rate Blood Pressure 144/83 121/78 127/78 O2 Sat by Pulse 100 99 97 Oximetry Medical Decision Making - Medical Decision Making Was pt. sent in by a medical professional or institution (, [facility], [employer] INFORMATION CLERK, urgent c are, hospital, or [facility]...) When possible be specific @ -No Did you speak to anyone other than the patient for history (EMS, parent, family, police, friend...)? What history was obtained from this source @ -No Did you review nursing and triage notes (agree or disagree)? Why? @ -I reviewed and agree with nursing and triage notes Were old charts reviewed (outside hosp., previous admission, EMS record, old EKG, old radiological studies, urgent care reports/EKG's, [facility] records)? Report findings @ -No old charts were reviewed Differential Diagnosis (chest pain, altered mental status, abdominal pain women, abdominal pain men, vaginal bleeding, weakness, fever, dyspnea, syncope, headache, dizziness, GI bleed, back pain, seizure, CVA, palpatations, mental health, musculoskeletal)? @ -Differential Headache: Migraine, tension, cluster, carbon monoxide, central venous thrombosis, pension karma temporal arteritis, acute closure glaucoma, intercranial hemorrhage, mastoiditis, sinusitis, head injury, this is not meant to be an all-inclusive list. EKG interpreted by me (3pts min.). @ -Not done X-rays interpreted by me (1pt min.). @ -None done CT interpreted by me (1pt min.). @ -None done U/S interpreted by me (1pt. min.). @ -None done What testing was considered but not performed or refused? (CT, X-rays, U/S, labs)? Why? @ -CT brain was considered however patient does have improvement in her symptoms with medications alone What meds were considered but not given or refused? Why? @ -None Did you discuss the management of the patient with other professionals (professionals i.e. , G[employer]IMO, [employer] INFORMATION CLERK, lab, RT, psych nurse, foster care social worker, cyber forensic specialist, teacher, campus safety officer, case packer and sealer)? Give summary @ -No Was smoking cessation discussed for >3mins.? @ -No Was critical care preformed (if so, how long)? @ -No Were there social determinants of health that impacted care today? How? (Homelessness, low income, unemployed, alcoholism, drug addiction, transportation, low edu. Level, literacy, decrease access to med. care, usp, rehab)? @ -No Was there de-escalation of care discussed even if they declined (Discuss DNR or withdrawal of care, Hospice)? DNR status @ -No What co-morbidities impacted this encounter? (DM, HTN, Smoking, COPD, CAD, Cancer, CVA, ARF, Chemo, Hep., AIDS, mental health diagnosis, sleep apnea, morbid obesity)? @ -Bariatric surgerypatient cannot take NSAIDs Was patient admitted / discharged? Hospital course, mention meds given and route , prescriptions, significant lab abnormalities, going to OR and other pertinent info. @ -Upon arrival patient seen and evaluated in room 1. Thorough history and physical exam was performed. IV access was established. Laboratory studies are conducted. Patient was given a migraine cocktail and muscle relaxer. Patient is reevaluated and reports to marked improvement in her symptoms. She is able to get up and ambulate. I did discuss results with the patient. There is consideration for meningitis due to the neck stiffness however patient has no white count no fever. She does have improvement in her symptoms. Patient feels comfortable going home at this time. Will be prescribed additional muscle relaxers to take as needed if symptoms return. She is to place warm compresses to the site. Follow-up with her doctor for further treatment options and return for any new or worsening symptoms. Patient agreeable plan was discharged in stable condition Undiagnosed new problem with uncertain prognosis? @ -No Drug Therapy requiring intensive monitoring for toxicity (Heparin, Nitro, Ins ulin, Cardizem)? @ -No Were any procedures done? @ -No Diagnosis/symptom? @ -Acute cephalgia, acute cervical strain Acute, or Chronic, or Acute on Chronic? @ -Acute Uncomplicated (without systemic symptoms) or Complicated (systemic symptoms)? @ -Complicated Side effects of treatment? @ -No Exacerbation, Progression, or Severe Exacerbation? @ -No Poses a threat to life or bodily function? How? (Chest pain, USA, PR, pneumonia, PE, COPD, DKA, ARF, appy, cholecystitis, CVA, Diverticulitis, Homicidal, Suicidal, threat to staff... and all critical care pts) @ -No - Lab Data Result diagrams: 09/11/23 07:45 09/11/23 07:45 Lab Results 09/11/23 09/11/23 09/11/23 Range/Units 07:40 07:40 07:45 WBC 6.7 (3.8-10.6) k/uL RBC 4.84 (3.80-5.40) m/uL Hgb 15.1 (11.4-16.0) gm/dL Hct 44.0 (34.0-46.0) % MCV 90.9 (80.0-100.0) fL MCH 31.2 (25.0-35.0) pg MCHC 34.3 (31.0-37.0) g/dL RDW 12.2 (11.5-15.5) % Plt Count 275 (150-450) k/uL MPV 7.1 Neutrophils % 64 % Lymphocytes % 28 % Monocytes % 5 % Eosinophils % 1 % Basophils % 1 % Neutrophils # 4.3 (1.3-7.7) k/uL Lymphocytes # 1.8 (1.0-4.8) k/uL Monocytes # 0.3 (0-1.0) k/uL Eosinophils # 0.1 (0-0.7) k/uL Basophils # 0.1 (0-0.2) k/uL Sodium (137-145) mmol/L Potassium (3.5-5.1) mmol/L Chloride (98-107) mmol/L Carbon Dioxide (22-30) mmol/L Anion Gap mmol/L BUN (7-17) mg/dL Creatinine (0.52-1.04) mg/dL Est GFR (CKD-EPI)AfAm (>60 ml/min/1.73 sqM) Est GFR (CKD-EPI)NonAf (>60 ml/min/1.73 sqM) Glucose (74-99) mg/dL Calcium (8.4-10.2) mg/dL Total Bilirubin (0.2-1.3) mg/dL AST (14-36) U/L ALT (4-34) U/L Alkaline Phosphatase (38-126) U/L C-Reactive Protein (<1.0) mg/dL Total Protein (6.3-8.2) g/dL Albumin (3.5-5.0) g/dL Urine Color Colorless Urine Appearance Clear (Clear) Urine pH 7.5 (5.0-8.0) Ur Specific [place] 1.005 (1.001-1.035) Urine Protein Negative (Negative) Urine Glucose (UA) Negative (Negative) Urine Ketones Negative (Negative) Urine Blood Negative (Negative) Urine Nitrite Negative (Negative) Urine Bilirubin Negative (Negative) Urine Urobilinogen <2.0 (<2.0) mg/dL Ur Leukocyte Esterase Negative (Negative) Urine HCG, Qual Not Detected (Not Detectd) 09/11/23 Range/Units 07:45 WBC (3.8-10.6) k/uL RBC (3.80-5.40) m/uL Hgb (11.4-16.0) gm/dL Hct (34.0-46.0) % MCV (80.0-100.0) fL MCH (25.0-35.0) pg MCHC (31.0-37.0) g/dL RDW (11.5-15.5) % Plt Count (150-450) k/uL MPV Neutrophils % % Lymphocytes % % Monocytes % % Eosinophils % % Basophils % % Neutrophils # (1.3-7.7) k/uL Lymphocytes # (1.0-4.8) k/uL Monocytes # (0-1.0) k/uL Eosinophils # (0-0.7) k/uL Basophils # (0-0.2) k/uL Sodium 138 (137-145) mmol/L Potassium 3.9 (3.5-5.1) mmol/L Chloride 107 (98-107) mmol/L Carbon Dioxide 25 (22-30) mmol/L Anion Gap 6 mmol/L BUN 10 (7-17) mg/dL Creatinine 0.59 (0.52-1.04) mg/dL Est GFR (CKD-EPI)AfAm >90 (>60 ml/min/1.73 sqM) Est GFR (CKD-EPI)NonAf >90 (>60 ml/min/1.73 sqM) Glucose 86 (74-99) mg/dL Calcium 9.4 (8.4-10.2) mg/dL Total Bilirubin 0.7 (0.2-1.3) mg/dL AST 20 (14-36) U/L ALT 13 (4-34) U/L Alkaline Phosphatase 49 (38-126) U/L C-Reactive Protein 0.8 (<1.0) mg/dL Total Protein 7.4 (6.3-8.2) g/dL Albumin 4.8 (3.5-5.0) g/dL Urine Color Urine Appearance (Clear) Urine pH (5.0-8.0) Ur Specific [place] (1.001-1.035) Urine Protein (Negative) Urine Glucose (UA) (Negative) Urine Ketones (Negative) Urine Blood (Negative) Urine Nitrite (Negative) Urine Bilirubin (Negative) Urine Urobilinogen (<2.0) mg/dL Ur Leukocyte Esterase (Negative) Urine HCG, Qual (Not Detectd) Disposition Clinical Impression: Headache, Neck pain Disposition: HOME SELF-CARE Condition: Stable Instructions (If sedation given, give patient instructions): Acute Headache (ED) Additional Instructions: Please take the muscle relaxer and pain medications as needed. Start the steroids in 72 hours if you still have pain. Take the pain medication approximately 2 to 3 hours after the muscle relaxer and watch for sedation. Follow-up with your primary care doctor and return for any new or worsening symptoms to include fevers, intractable headache. Prescriptions: predniSONE [Deltasone] 20 mg PO BID #10 tab Cyclobenzaprine [Flexeril] 10 mg PO TID PRN #15 tab PRN Reason: Muscle Spasm Acetaminophen-Codeine 300-30mg [Tylenol #3] 1 tab PO Q6H PRN #12 tablet PRN Reason: pain Is patient prescribed a controlled substance at d/c from ED?: Yes When asked, does pt state using other controlled substances?: No If prescribed controlled substance>3 days was MAPS reviewed?: Prescribed <3 Days Referrals: Niko Nieto DO [Primary Care Provider] - 1-2 days Time of Disposition: 09:51
[2023-09-11 10:06] VITALS: BP 127/78; PULSE 82; TEMP 98
== END 2023-09-11 10:14 | disposition home or self-care (01) ==
LOC: EC 06:57
DX: M54.2 Cervicalgia (principal); R51.9 Headache, unspecified; Z88.6 Allergy status to analgesic agent; Z91.018 Allergy to other foods; Z91.010 Allergy to peanuts; Z88.8 Allergy status to other drugs, medicaments and biological substances; Z91.09 Other allergy status, other than to drugs and biological substances
CPT/HCPCS: 36415; 80053; 85025; 86140; 81003; 81025; 99284; 96365; 96375; 96372; J2270; J1200; J1100; J2360; J2765; J3475

== ENCOUNTER → 2023-10-30 | Outpatient (CLI) | payer BC | END | disposition home or self-care (01) | LOC: LABWHC1 03:46 | PROVIDERS: ATTEND Internal Medicine | DX: E05.90 Thyrotoxicosis, unspecified without thyrotoxic crisis or storm (principal) | CPT/HCPCS: 36415; 84481 ==

== ENCOUNTER → 2023-11-07 | Outpatient (CLI) | payer BC ==
[2023-11-07 13:09] VITALS: BP 134/89; PULSE 114; RESP 16; TEMP 98.5; BMI 27.0
--- NOTE | 2023-11-07 13:20 | P.BASOAP ---
Subjective Progress Note Date: 11/07/23 Principal diagnosis: Morbid obesity Patient returns for evaluation. Last seen 1 year ago. She is 7 years out from her sleeve gastrectomy. Today she is complaining of some sweaty/shaking. Had a similar episode 1 week ago after a lab draw. Denies chest pain. Was in the ER a week ago with a migraine. No headache currently. Patient says her GERD symptoms have improved. Sleeping with a wedge pillow. No nighttime aspiration. Down to once daily PPI. Objective - Vital Signs Vital signs: Vital Signs Temp 98.5 F 11/07/23 13:06 Pulse 114 H 11/07/23 13:06 Resp 16 11/07/23 13:06 BP 134/89 11/07/23 13:06 Pulse Ox FiO2 Intake & Output 11/06/23 11/07/23 11/07/23 18:59 06:59 18:59 Weight 60.781 kg - Exam Abdomen: Soft, nontender, nondistended Assessment/Plan (1) Morbid obesity Narrative/Plan: 38-year-old female doing fairly well after sleeve gastrectomy 7 years ago. Cont inue daily antiacids. Monitor today's new complaints of feeling shaky and sweaty. If those symptoms persist or worsen advise ER or urgent care visit. Annual lab work provided to the patient. She will bring this to her next doctor's visit when she has labs drawn. Follow-up 1 year. Plan: Date: 11/07/23 Initial Weight: 86.682 kg Initial BMI: 38.5 Current Weight: 60.781 kg Current BMI: 27.0 Type of Surgery: Vertical Sleeve Gastrectomy Total Volume in Band: Previous Volume: Volume Removed: Volume Added: Band Size:
== END ==
LOC: BARWHC3 12:55
PROVIDERS: ATTEND Surgery
CPT/HCPCS: 99211

== ENCOUNTER → 2024-07-03 | Outpatient (CLI) | payer BC ==
--- NOTE | 2024-07-03 15:28 | XR ---
EXAMINATION TYPE: XR knee complete RT DATE OF EXAM: 07/03/2024 3:23 PM COMPARISON: None. CLINICAL INDICATION: Female, 38 years old with history of [id number] RT KNEE PAIN, pain TECHNIQUE: 3 view(s) obtained. FINDINGS: Joint spaces are preserved. No acute fracture or dislocation evident. No significant joint effusion. Follow up exams can be performed 7-10 days from acute trauma for continued pain. IMPRESSION: 1. No acute osseous abnormality right knee [facility], Workstation: [id number], 07/03/2024 3:25 PM
== END | disposition home or self-care (01) ==
LOC: RADXRYALE 14:55
PROVIDERS: ATTEND Physician Assistant
DX: M25.561 Pain in right knee (principal)